=== PATIENT | male | born 1945 | race Caucasian/White ===

== ENCOUNTER 2018-07-07 07:22 | Emergency (ER) | payer MEDICARE, SELFPAY ==
[2018-07-07] VITALS (21 sets, daily range): BP systolic 119–134; BP diastolic 57–113; PULSE 75–88; RESP 18–20; TEMP 36.9–37.1; O2SAT 93–96
--- NOTE | 2018-07-07 07:31 | DI.US_ITS ---
SYMPTOMS/DIAGNOSIS: LT TESTICLE PAIN, SWELLING TESTICULAR ULTRASOUND: Routine examination was performed. The right testicle measures 4.2 x 3 x 3.9 cm. It is homogeneous with normal blood flow. No evidence of testicular torsion or intratesticular mass is seen. Note is made of a 4.1 x 1.7 x 6.0 cm right hydrocele. The right epididymis is unremarkable. The testicle measures 3.7 x 3.5 x 3.5 cm. There is increased blood flow to the left testicle. No evidence of torsion is seen. No intratesticular mass is present. The left epididymis appears hyperemic. There is a 7 x 3.5 x 5.2 cm multiloculated fluid collection on the left. This may represent a complex hydrocele or hematocele. IMPRESSION: 1. Left epididymal orchitis. 2. Complex left hydrocele. This may reflect infection or hematocele. 3. Right hydrocele. 4. No evidence of testicular mass or torsion.
--- NOTE | 2018-07-07 07:32 | W.ED.GENAD ---
Discharge Plan Disposition Patient Disposition: HOME Condition: Improving Discharge Details Chief Complaint: Urinary Clinical Impression: Left testicular pain, Hydrocele, left, Acute orchitis, Epididymitis Primary Care Provider: Elías Robb ED Provider: Miguel Angel Brown Home Meds and New Rx's Prescriptions: No Action omeprazole 20 mg Capsule,Delayed Release(Dr/Ec) 20 mg PO DAILY RF: 0 finasteride 5 mg Tablet 5 mg PO DAILY RF: 0 rdjgjwcm-nfkfmxe-iiuu-lutein Tablet 1 mcg PO DAILY RF: 0 Medical Decision Making <Jayden Bermudez MD - Last Filed: 07/07/18 07:35> 72 yo male comes in with left testicle pain and swelling that started about 3 days ago and has slowly been worsening, denies having this happen in the past and denies any recent trauma. Denies any abdominal pain or vomit. On exam his left scrotum is swollen compared to the right, no crepitus, does have tenderness of the left testicle. His cremasteric reflex does appera intact. Will see if an u/s tech is able to come in for an u/s to eval for torsion vs hernia vs orchitis. Differential Diagnosis hernia, torsion, epididymitis, orchitis <Miguel Angel Brown DO - Last Filed: 07/07/18 13:39> The case was signed out to me by my colleague Dr. Jayden Bermudez. At that time we are pending imaging results. Urinalysis returned and demonstrated notable pyuria with positive leuk esterase and nitrites. Notable WBC count in the urine. Ultrasound results have returned and per virtual radiologist there is evidence of a notable left-sided hydrocele that is multiloculated and complex at 7 x 5 x 3 cm. Hematocele is certainly also on the differential. There is hyperemia of the left testicle as well demonstrating notable orchitis. Enlarged left epididymis also concerning for epididymitis. No evidence of testicular torsion. Exam demonstrates mild erythema on the left scrotum, but no induration, no crepitus, no evidence of subcutaneous crepitus, or extending redness or cellulitis. No clinical evidence at this time of necrotizing fasciitis or foreign years gangrene. Pain is completely localized to the testicle, and nowhere else. Symptoms are inconsistent with other secondary superficial cellulitis at this time. Because of these findings I did order labs, laboratory work-up demonstrates a notably elevated WBC at 22, left shift, elevated ESR at 43 and elevated CRP at 22. Glucose is normal. Signs and symptoms are certainly concerning for orchitis with concern for epididymitis and pyuria. We have ordered blood cultures and given him Levaquin. We do not have urology certified personal chef. The patient is requesting transfer to the [facility] over [facility]. We have contacted the NH and spoke with Dr. Isaac Lane, he then subsequently reviewed the case with their urology team, as well as her surgery team, and urology and surgery have requested his transfer there to their facility for further management. They do feel that the transfer is appropriate at this time. The NH hospitalist did remark that transport would not be covered under the patient's [employer] insurance. I did relay this with the patient, including the risks and benefits versus transport via private vehicle versus by EMS. I also gave them my recommendations at this time. Understanding the risks and benefits, as well as the potential financial encouragement, family has elected to go with EMS transport at this time. I do think that this is certainly be safer option due to his notably elevated white count, notably tender testicles, and concern for worsening of his symptomatology if he is out of medical care. I have extensively reviewed the treatment plan with the patient. I have addressed all patient concerns at this time. I have also discussed the plan with the admitting physician and they agree with the current assessment and plan and have agreed to assume responsibility for the patient. All parties demonstrate verbal understanding and agreement with our assessment and plan at this time. At time of transfer the patient was reassessed and continued to demonstrate current medical stability. No signs of acute respiratory distress requiring intubation, hemodynamic instability requiring pressor support, or rapidly declining mental status. The patient is stable for transport. FINDINGS: Right Testicle: 4.2 x 3.0 x 3.9 cm right testicle. Left Testicle: Hyperemia of the left testicle consistent with left orchitis. 3.7 x 3.5 x 3.5 cm left testicle. Epididymides: Enlarged hyperemic left epididymis consistent with left epididymitis. 1.7 x 1.0 x 1.4 cm left epididymis. 1.2 x 0.6 cm right epididymis. Scrotum: 4.1 x 1.7 x 6.0 cm right hydrocele. Multiloculated complex 7.0 x 3.5 x 5.2 cm left hematocele versus multiloculated hydrocele. Other findings: No testicular torsion or intrinsic testicular mass. IMPRESSION: 1. 4.1 x 1.7 x 6.0 cm right hydrocele. 2. Multiloculated complex 7.0 x 3.5 x 5.2 cm left hematocele versus multiloculated hydrocele. 3. Hyperemia of the left testicle consistent with left orchitis. 4. Enlarged hyperemic left epididymis consistent with left epididymitis. 5. No testicular torsion or intrinsic testicular mass. Dictated and Authenticated by: Jayden Erickson MD. Ordering:ELIANE Carpenter MD HPI <Jayden Bermudez MD - Last Filed: 07/07/18 07:35> General Mode of arrival: ambulatory. Date/Time Provider Initiated Documentation: 07/07/18 07:26. Limitations to Documentation: no limitations. Information obtained by: patient. History of Present Illness 72 year old M presents to the emergency department with the chief complaint of left scrotum swelling and pain, described as moderate, Quality is described as stabbing and aching, and is localized to the genitals. Patient reports no radiation. Patient started experiencing this day(s) (3) and it has been constant. No relieving factors improve symptom(s), No exacerbating factors reported . Patient notes no other symptoms.. Patient did receive the following treatments prior to arrival, none Related Data Home Medications Medication Instructions Recorded Confirmed finasteride 5 mg PO DAILY 07/07/18 07/07/18 sacxtbok-rpsxxvx-gdsh-lutein 1 mcg PO DAILY 07/07/18 07/07/18 omeprazole 20 mg PO DAILY 07/07/18 07/07/18 Allergies Allergy/AdvReac Type Severity Reaction Status Date / Time No Known Allergies Allergy Unverified 07/07/18 07:34 Review of Systems <Jayden Bermudez MD - Last Filed: 07/07/18 07:35> Review of Systems All systems reviewed & are unremarkable except as noted in HPI and below Constitutional Denies chills, Denies fever(s) and Denies weakness Cardiovascular Denies chest pain and Denies dyspnea Respiratory Denies cough and Denies dyspnea Gastrointestinal Denies abdominal pain, Denies nausea and Denies vomiting Musculoskeletal Denies joint swelling Neurologic Denies weakness PFS <Jayden Bermudez MD - Last Filed: 07/07/18 07:35> Medical History Benign prostate hyperplasia (Chronic) COPD (chronic obstructive pulmonary disease) (Chronic) Social History Smoking/Tobacco Use Status: Former Tobacco Use Alcohol Intake: never Substance use type: does not use Do you feel safe at home: Yes Do you feel safe in your relationship?: Yes Exam <Jayden Bermudez MD - Last Filed: 07/07/18 07:35> Const General: no acute distress Orientation: alert HENMT Head: normal to inspection Ears: external ears normal General nose exam: external nose normal Mouth: moist mucous membranes Eyes General: appearance normal, both eyes and all related structures Neck Neck: normal visual inspection Resp Effort & Inspection: normal respiratory effort and able to speak in complete sentences Cardio Rate: regular rate Penis: normal penis Skin General skin exam: no rashes or lesions noted Neuro General: alert and oriented x3 Extrem General: normal to inspection Psych Mental Status: mental status grossly normal Sign Out <Jayden Bermudez MD - Last Filed: 07/07/18 07:35> Sign Out Data: Sign Out Comment: f/u on u.s results Last updated by Jayden Bermudez MD at 07/07/18 07:40
--- NOTE | 2018-07-07 07:36 | ED.GENADUL_ITS ---
Discharge Plan Disposition Patient Disposition: HOME Condition: Improving Discharge Details Chief Complaint: Urinary Clinical Impression: Left testicular pain, Hydrocele, left, Acute orchitis, Epididymitis Primary Care Provider: Elías Robb ED Provider: Miguel Angel Brown Home Meds and New Rx's Prescriptions: No Action omeprazole 20 mg Capsule,Delayed Release(Dr/Ec) 20 mg PO DAILY RF: 0 finasteride 5 mg Tablet 5 mg PO DAILY RF: 0 ifedaqmu-hwulxoh-zgwi-lutein Tablet 1 mcg PO DAILY RF: 0 Medical Decision Making <Jayden Bermudez MD - Last Filed: 07/07/18 07:35> 72 yo male comes in with left testicle pain and swelling that started about 3 days ago and has slowly been worsening, denies having this happen in the past and denies any recent trauma. Denies any abdominal pain or vomit. On exam his left scrotum is swollen compared to the right, no crepitus, does have tenderness of the left testicle. His cremasteric reflex does appera intact. Will see if an u/s tech is able to come in for an u/s to eval for torsion vs hernia vs orchitis. Differential Diagnosis hernia, torsion, epididymitis, orchitis <Miguel Angel Brown DO - Last Filed: 07/07/18 13:39> The case was signed out to me by my colleague Dr. Jayden Bermudez. At that time we are pending imaging results. Urinalysis returned and demonstrated notable pyuria with positive leuk esterase and nitrites. Notable WBC count in the u rine. Ultrasound results have returned and per virtual radiologist there is evidence of a notable left-sided hydrocele that is multiloculated and complex at 7 x 5 x 3 cm. Hematocele is certainly also on the differential. There is hyperemia of the left testicle as well demonstrating notable orchitis. Enlarged left epididymis also concerning for epididymitis. No evidence of testicular torsion. Exam demonstrates mild erythema on the left scrotum, but no induration, no crepitus, no evidence of subcutaneous crepitus, or extending redness or cellulitis. No clinical evidence at this time of necrotizing fasciitis or foreign years gangrene. Pain is completely localized to the testicle, and nowhere else. Symptoms are inconsistent with other secondary superficial cellulitis at this time. Because of these findings I did order labs, laboratory work-up demonstrates a notably elevated WBC at 22, left shift, elevated ESR at 43 and elevated CRP at 22. Glucose is normal. Signs and symptoms are certainly concerning for orchitis with concern for epididymitis and pyuria. We have ordered blood cultures and given him Levaquin. We do not have urology occupational therapist aide. The patient is requesting transfer to the [facility]. We have contacted the [facility] and spoke with Dr. Isaac Lane, he then subsequently reviewed the case with their urology team, as well as her surgery team, and urology and surgery have requested his transfer there to their facility for further management. They do feel that the transfer is appropriate at this time. The [facility] hospitalist did remark that transport would not be covered under the patient's [employer] insurance. I did relay this with the patient, including the risks and benefits versus transport via private vehicle versus by EMS. I also gave them my recommendations at this time. Understanding the risks and benefits, as well as the potential financial encouragement, family has elected to go with EMS transport at this time. I do think that this is certainly be safer option due to his notably elevated white count, notably tender testicles, and concern for worsening of his symptomatology if he is out of medical care. I have extensively reviewed the treatment plan with the patient. I have addressed all patient concerns at this time. I have also discussed the plan with the admitting physician and they agree with the current assessment and plan and have agreed to assume responsibility for the patient. All parties demonstrate verbal understanding and agreement with our assessment and plan at this time. At time of transfer the patient was reassessed and continued to demonstrate current medical stability. No signs of acute respiratory distress requiring intubation, hemodynamic instability requiring pressor support, or rapidly declining mental status. The patient is stable for transport. FINDINGS: Right Testicle: 4.2 x 3.0 x 3.9 cm right testicle. Left Testicle: Hyperemia of the left testicle consistent with left orchitis. 3.7 x 3.5 x 3.5 cm left testicle. Epididymides: Enlarged hyperemic left epididymis consistent with left epididymitis. 1.7 x 1.0 x 1.4 cm left epididymis. 1.2 x 0.6 cm right epididymis. Scrotum: 4.1 x 1.7 x 6.0 cm right hydrocele. Multiloculated complex 7.0 x 3.5 x 5.2 cm left hematocele versus multiloculated hydrocele. Other findings: No testicular torsion or intrinsic testicular mass. IMPRESSION: 1. 4.1 x 1.7 x 6.0 cm right hydrocele. 2. Multiloculated complex 7.0 x 3.5 x 5.2 cm left hematocele versus multiloculated hydrocele. 3. Hyperemia of the left testicle consistent with left orchitis. 4. Enlarged hyperemic left epididymis consistent with left epididymitis. 5. No testicular torsion or intrinsic testicular mass. Dictated and Authenticated by: Jayden Erickson MD. Ordering:ELIANE Carpenter MD HPI <Jayden Bermudez MD - Last Filed: 07/07/18 07:35> General Mode of arrival: ambulatory . Date/Time Provider Initiated Documentation: 07/07/18 07:26 . Limitations to Documentation: no limitations . Information obtained by: patient . History of Present Illness 72 year old M presents to the emergency department with the chief complaint of left scrotum swelling and pain, described as moderate, Quality is described as stabbing and aching, and is localized to the genitals. Patient reports no radiation. Patient started experiencing this day(s) (3) and it has been constant. No relieving factors improve symptom(s), No exacerbating factors reported . Patient notes no other symptoms.. Patient did receive the following treatmen ts prior to arrival, none Related Data Home Medications Medication Instructions Recorded Confirmed finasteride 5 mg PO DAILY 07/07/18 07/07/18 zvwqhuun-hoodnyl-gpcl-lutein 1 mcg PO DAILY 07/07/18 07/07/18 omeprazole 20 mg PO DAILY 07/07/18 07/07/18 Allergies Allergy/AdvReac Type Severity Reaction Status Date / Time No Known Allergies Allergy Unverified 07/07/18 07:34 Review of Systems <Jayden Bermudez MD - Last Filed: 07/07/18 07:35> Review of Systems All systems reviewed & are unremarkable except as noted in HPI and below Constitutional Denies chills, Denies fever(s) and Denies weakness Cardiovascular Denies chest pain and Denies dyspnea Respiratory Denies cough and Denies dyspnea Gastrointestinal Denies abdominal pain, Denies nausea and Denies vomiting Musculoskeletal Denies joint swelling Neurologic Denies weakness PFS <Jayden Bermudez MD - Last Filed: 07/07/18 07:35> Medical History Benign prostate hyperplasia (Chronic) COPD (chronic obstructive pulmonary disease) (Chronic) Social History Smoking/Tobacco Use Status: Former Tobacco Use Alcohol Intake: never Substance use type: does not use Do you feel safe at home: Yes Do you feel safe in your relationship?: Yes Exam <Jayden Bermudez MD - Last Filed: 07/07/18 07:35> Const General: no acute distress Orientation: alert HENMT Head: normal to inspection Ears: external ears normal General nose exam: external nose normal Mouth: moist mucous membranes Eyes General: appearance normal, both eyes and all related structures Neck Neck: normal visual inspection Resp Effort & Inspection: normal respiratory effort and able to speak in complete sentences Cardio Rate: regular rate Penis: normal penis Skin General skin exam: no rashes or lesions noted Neuro General: alert and oriented x3 Extrem General: normal to inspection Psych Mental Status: mental status grossly normal Sign Out <Jayden Bermudez MD - Last Filed: 07/07/18 07:35> Sign Out Data: Sign Out Comment: f/u on u.s results Last updated by Jayden Bermudez MD at 07/07/18 07:40
[2018-07-07 08:46] LABS: Bilirubin Small (Negative); Blood Large (Negative); Clarity Clear; Glucose Negative (Negative); Ketones Trace mg/dL (Negative); Leukocyte Esterase Small (Negative); Nitrite Positive (Negative); Specific Gravity 1.025 (1.005-1.025); pH 5.5 (5-8)
[2018-07-07 08:52] LABS: WBC >50 HPF (0-5)
[2018-07-07 08:53] LABS: C & S Indicated? Yes
--- NOTE | 2018-07-07 10:13 | DI.VRAD_ITS ---
EXAM: US Scrotum EXAM DATE/TIME: 07/07/2018 9:40 AM CLINICAL HISTORY: 72 years old, male; Signs and symptoms; Other: Left testicular pain and swelling x 3 days S/P lifting heavy rocks TECHNIQUE: Imaging protocol: Real-time ultrasound of the scrotum and contents with color Doppler and image documentation. COMPARISON: No relevant prior studies available. FINDINGS: Right Testicle: 4.2 x 3.0 x 3.9 cm right testicle. Left Testicle: Hyperemia of the left testicle consistent with left orchitis. 3.7 x 3.5 x 3.5 cm left testicle. Epididymides: Enlarged hyperemic left epididymis consistent with left epididymitis. 1.7 x 1.0 x 1.4 cm left epididymis. 1.2 x 0.6 cm right epididymis. Scrotum: 4.1 x 1.7 x 6.0 cm right hydrocele. Multiloculated complex 7.0 x 3.5 x 5.2 cm left hematocele versus multiloculated hydrocele. Other findings: No testicular torsion or intrinsic testicular mass. IMPRESSION: 1. 4.1 x 1.7 x 6.0 cm right hydrocele. 2. Multiloculated complex 7.0 x 3.5 x 5.2 cm left hematocele versus multiloculated hydrocele. 3. Hyperemia of the left testicle consistent with left orchitis. 4. Enlarged hyperemic left epididymis consistent with left epididymitis. 5. No testicular torsion or intrinsic testicular mass. Dictated and Authenticated by: Jayden Erickson MD. Ordering:ELIANE Carpenter MD
[2018-07-07] MEDS: levoFLOXacin 500 MG/100 ML BAG 100 MG IVPB (10:15)
[2018-07-07 10:16] LABS: Abs Immature Grans 0.07 k/cumm (0.0-0.09); Absolute Monocyte Count 2.63 k/cumm (0.11-0.7); Basophils % 0.2; Eosinophils % 0.3; HCT 43.1 % (40.0-50.0); HGB 14.3 g/dL (13.5-17.5); Immature Grans % 0.3; Lymphocytes % 7.7; Mean Corp. HGB Concentration 33.2 g/dL (32.0-36.0); Mean Corpuscular Hemoglobin 28.8 pg (27.0-33.0); Mean Corpuscular Volume 86.9 fL (80-95); Mean Platelet Volume 9.1 fL (8.0-11.0); Monocytes % 11.9; Neutrophils % 79.6; Platelet Count 333 x1000/uL (130-400); RBC 4.96 m/cumm (4.50-6.00); White Blood Cell Count 22.07 k/cumm (4.4-10.8)
[2018-07-07 10:26] LABS: Absolute Basophil Count 0.04 k/cumm (0.0-0.2); Absolute Eosinophil Count 0.07 k/cumm (0.0-0.7); Absolute Neutrophil Count 17.57 k/cumm (1.2-6.7)
[2018-07-07 10:28] LABS: ALT 39 U/L (12-78); AST 21 U/L (15-37); Albumin 3.3 g/dL (3.4-5.0); Alkaline Phosphatase 94 U/L (46-116); Anion Gap 10.2 mmol/L (3-11); BUN 16 mg/dL (7-18); Bilirubin, Total 0.9 mg/dL (0.2-1.0); C-Reactive Protein 22.33 mg/dL (0.0-0.3); CO2 25.8 mmol/L (21.0-32.0); CREATININE 1.38 mg/dL (0.70-1.30); Calcium 9.2 mg/dL (8.5-10.1); Chloride 99 mmol/L (98-107); Estimated GFR 50.51 (mL/min/1.73m2); Glucose 104 mg/dL (70-100); Potassium 3.8 mmol/L (3.5-5.1); Sodium 135 mmol/L (136-145)
[2018-07-07 10:36] LABS: Diff Comment Diff Reviewed
[2018-07-07 10:37] LABS: RBC Morphology Normal
[2018-07-07 11:08] LABS: ESR 43 MM/HR (1-20)
[2018-07-07] MEDS: MORPHine 10 MG/ML VIAL 4 MG IVP (14:37)
[2018-07-09 13:46] LABS: Chlamydia Result Negative; GC Result Negative
--- NOTE | 2018-07-10 17:02 | NUR.NOTE ---
Nursing Note: Faxed to [place] the urine culture result for follow up. [facility] accepting the fax. Wilma Dodge.
== END 2018-07-07 14:48 | disposition short-term general hospital (02) ==
PROVIDERS: Emergency Medicine; Emergency Provider Student in an Organized Health Care Education/Training Program; PCP Physician Assistant Medical
DX: N50.812 Left testicular pain (principal); N50.89 Other specified disorders of the male genital organs; N43.3 Hydrocele, unspecified; N45.3 Epididymo-orchitis; B95.61 Methicillin susceptible Staphylococcus aureus infection as the cause of diseases classified elsewhere; R79.82 Elevated C-reactive protein (CRP); R70.0 Elevated erythrocyte sedimentation rate; J44.9 Chronic obstructive pulmonary disease, unspecified; Z87.891 Personal history of nicotine dependence
CPT/HCPCS: 36410; 36415; 80053; 85652; 87040; 87077; 87491; 87591; 96365; 96366; 96375; 99285; 76870; 81003; 81015; 85025; 86140; 87086; 87186; J1956; J2270

== ENCOUNTER 2018-12-25 20:27 | Emergency (ER) | payer OTHER, SELFPAY ==
[2018-12-25 20:39] VITALS: BP 157/96; PULSE 83; RESP 17; TEMP 36.5; O2SAT 96
--- NOTE | 2018-12-25 20:50 | ED.GENADUL_ITS ---
Discharge Plan Disposition Patient Disposition: HOME Condition: Fair Discharge Details Chief Complaint: RashLesion Clinical Impression: Cellulitis of face Primary Care Provider: Elías Robb ED Provider: Maeve Akers Home Meds and New Rx's Prescriptions: New doxycycline hyclate 100 mg capsule 100 mg PO BID Qty: 10 RF: 0 Continued omeprazole 20 mg Capsule,Delayed Release(Dr/Ec) 20 mg PO DAILY RF: 0 finasteride 5 mg Tablet 5 mg PO DAILY RF: 0 Zyrtec 10 mg Capsule 10 mg PO DAILY RF: 0 Discontinued uamzorxl-ubxdzin-hoyz-lutein Tablet 1 mcg PO DAILY RF: 0 Discharge Instructions Instructions: Doxycycline (By mouth), Cellulitis (ED) Additional Instructions: Encourage hydration. Tylenol and/or Ibuprofen as needed for discomfort. You have a skin infection. Please take the Doxycycline as prescribed, even if symptoms improve please take the entire course. Please follow up with primary care in 3 days for reevaluation. If the pain increases, swelling spreads, you have fevers/chills, pain in the eye, vision changes or other new/worsening symptoms please seek care urgently once again. Referrals: Elías Robb [Primary Care Provider] - Discharge Data Discharge Date/Time-TO BE ENTERED AT DEPARTURE: 12/25/18 21:25 Medical Decision Making Patient is 73-year-old male presents today with chief complaint of left-sided rash and swelling in his face. States that he has been using anti-inflammatory and ice which is been helping with his discomfort. Denies any fevers or chills. No known trauma. Pain is primarily at the area of the nasolabial fold. Denies any change in his vision. No eye discharge. No pain with extraocular movements. On exam, patient has area of erythema to the left side of his face that does extend across the nose. Patient does report that typically he has erythema to his nose reports he has been seen by [employer] barista for this. Patient is area of induration maximal at the left nasolabial fold, this was was explored with ultrasound noted no evidence of his abscess was noted. No findings intranasally, and no abnormalities intraorally to suggest dental infection. Concern for possible erysipelas. Patient was also evaluated by Dr. Amado felt this is more consistent with cellulitis more so than erysipelas. Advise beginning the patient on doxycycline. Patient was given strict return precautions. Encourage hydration. Patient started on doxycycline, received first dosing here as pharmacies are closed. All his questions and concerns were addressed and he is in agreement this plan. HPI General Mode of arrival: ambulatory . Date/Time Provider Initiated Documentation: 12/25/18 20:33 . Limitations to Documentation: no limitations . Information obtained by: patient and RN notes reviewed . History of Present Illness 73 year old M presents to the emergency department with the chief complaint of left sided facial swelling, pain and erythema, described as moderate, with intensity rated at 8. Quality is described as aching, and is localized to the face. Patient reports no radiation. Patient started experiencing this hour(s) and it has been constant. Medication improves symptom(s), No exacerbating factors reported . Patient notes rash; denies chest pain, cough, diaphoresis, fever/chills, headaches, loss of appetite, nausea/vomiting, shortness of breath and weakness. Patient did receive the following treatments prior to arrival, NSAID Related Data Home Medications Medication Instructions Recorded Confirmed finasteride 5 mg PO DAILY 07/07/18 12/25/18 omeprazole 20 mg PO DAILY 07/07/18 12/25/18 Zyrtec 10 mg PO DAILY 12/25/18 12/25/18 doxycycline hyclate 100 mg PO BID #10 cap 12/25/18 Previous Rx's Medication Instructions Recorded doxycycline hyclate 100 mg PO BID #10 cap 12/25/18 Allergies Allergy/AdvReac Type Severity Reaction Status Date / Time cimetidine [From Tagamet] Allergy Severe Other (See Unverified 12/25/18 20:44 Comment) General Stated Complaint: RashLesion RAYMON: 3 Review of Systems Constitutional Constitutional: Reports as per HPI, Denies chills, Denies fever(s) and Denies headache(s) Eyes Eyes: Reports as per HPI, Denies eye discharge and Denies irritation ENT Ears, Nose, Mouth, and Throat: Reports as per HPI, Denies vertigo, Denies dizziness, Denies ear discharge, Denies otalgia, Reports facial pain, Denies headache(s), Denies hoarseness, Denies lip swelling, Denies mouth lesions, Denies mouth pain, Denies nasal congestion, Denies nasal discharge, Reports nose pain (left nasolabial fold pain), Denies post nasal drip, Denies sinus pressure and Denies sore throat Cardiovascular Cardiovascular: Reports as per HPI, Denies chest pain and Denies dyspnea Respiratory Respiratory: Reports as per HPI, Denies cough, Denies hemoptysis, Denies dyspnea, Denies stridor and Denies wheezing Gastrointestinal Gastrointestinal: Reports as per HPI, Denies abdominal pain, Denies change in bowel habits, Denies nausea and Denies vomiting Integumentary/Breasts Skin/Breast: Reports as per HPI and Denies rash Neurologic Neurologic: Reports as per HPI, Denies vertigo, Denies dizziness and Denies headache(s) Allergic/Immunologic Allergic/Immunologic: Denies lip swelling and Denies wheezing [facility] Medical History Benign prostate hyperplasia (Chronic) COPD (chronic obstructive pulmonary disease) (Chronic) Social History Smoking/Tobacco Use Status: Former Tobacco Use Alcohol Intake: never Drug use: Never Substance use type: does not use Do you feel safe at home: Yes Do you feel safe in your relationship?: Yes Exam Const General: cooperative, healthy appearing, comfortable, no acute distress, well developed and well groomed Nutritional Appearance: average body habitus and well nourished Orientation: alert and awake HENPR Head: normal to inspection, normocephalic and atraumatic Ears: hearing grossly normal bilaterally, external ears normal and TM's normal bilaterally General nose exam: external nose normal and nares normal Face and sinus: face asymmetric (please see drawing below) Face images: 1. area of induration. No fluctuance. No intranasal involvement. No eye involvement 2. area of erythema Mouth: oral mucosae normal, lip normal, tongue normal, oropharynx normal and moist mucous membranes Teeth and gingiva: dentition normal Throat: posterior oropharynx normal, tonsils normal and uvula midline Eyes General: appearance normal, both eyes and all related structures Visual Tate: normal visual tate by confrontation Alignment and Position: alignment normal Periorbital: periorbital findings normal Eyelids: eyelids normal Conjunctivae: conjunctivae normal Sclera: sclerae normal Cornea: corneas normal Pupils: PERRL and normal by confrontation EOM: EOM intact bilaterally Neck Neck: normal visual inspection, full ROM, no lymphadenopathy and no meningeal signs Resp Effort & Inspection: normal respiratory effort, able to speak in complete sentences and no respiratory distress Auscultation: clear to auscultation bilaterally, no rales, no rhonchi and no wheezes Cardio Rate: regular rate Rhythm: regular rhythm Heart Sounds: S1 normal and S2 normal Skin General skin exam: erythema (as above) Neuro General: alert and awake Cognition: normal cognition Speech: speech normal Gait: normal gait Psych Appearance: grossly normal and well kempt Mental Status: mental status grossly normal Speech and Movement: speech and movement normal Course Vital Signs Vital signs: Vital Signs Temperature 36.5 C 12/25/18 20:39 Pulse 83 12/25/18 20:39 Respiratory Rate 17 12/25/18 20:39 Blood Pressure 157/96 H 12/25/18 20:39 Pulse Oximetry 96 12/25/18 20:39 Temperature 36.5 C 12/25/18 20:39 Temperature Source Skin 12/25/18 20:39 Pulse 83 12/25/18 20:39 Respiratory Rate 17 12/25/18 20:39 Blood Pressure 157/96 H 12/25/18 20:39 Blood Pressure Position Sitting 12/25/18 20:39 Pulse Oximetry 96 12/25/18 20:39 Oxygen Delivery Method Room Air 12/25/18 20:39 Oxygen Flow Rate 0 12/25/18 20:39 Pain Level 8 12/25/18 20:39
[2018-12-25] MEDS: Doxycycline Hyclate 100 MG CAP PO ×2 (21:10→21:20)
[2018-12-25 21:22] VITALS: BP 152/74; PULSE 84; RESP 18; TEMP 36.5; O2SAT 96
== END 2018-12-25 21:25 | disposition home or self-care (01) ==
PROVIDERS: Emergency Provider Physician Assistant; PCP Physician Assistant Medical
DX: L03.211 Cellulitis of face (principal); J44.9 Chronic obstructive pulmonary disease, unspecified; Z87.891 Personal history of nicotine dependence
CPT/HCPCS: 99283

== ENCOUNTER 2019-04-17 10:48 | Emergency (ER) | payer OTHER, SELFPAY ==
[2019-04-17 10:54] VITALS: BP 154/80; PULSE 79; RESP 14; TEMP 36.3; O2SAT 97
[2019-04-17 11:13] VITALS: RESP 18
--- NOTE | 2019-04-17 11:16 | NUR.NOTE ---
IOP in OS was 13 and OD 22 with tonopen.
--- NOTE | 2019-04-17 11:59 | ED.GENADUL_ITS ---
Discharge Plan Disposition Patient Disposition: HOME Condition: Good Discharge Details Chief Complaint: GenMedical Clinical Impression: Diplopia Primary Care Provider: Elías Robb ED Provider: Miguel Angel Brown Home Meds and New Rx's Prescriptions: No Action omeprazole 20 mg Capsule,Delayed Release(Dr/Ec) 20 mg PO DAILY RF: 0 finasteride 5 mg Tablet 5 mg PO DAILY RF: 0 budesonide-formoterol [Symbicort] 160-4.5 mcg/actuation Hfa Aerosol Inhaler 160 INHALATION RF: 0 Discharge Instructions Instructions: Diplopia (ED) Additional Instructions: At this time we suspect that your double vision is likely secondary to nerve affecting the muscles that move your eye. Please take a baby aspirin every day. Please follow-up closely with your taproom attendant at the [facility] for your scheduled appointment. We will place you on the referral sheet for neurology with Dr. Olmedo. They will contact you for your appointment time. If you notice any worsening of your symptoms, or any new symptoms such as vomiting, diarrhea, fever, chills, shortness of breath, chest pain, numbness, weakness, or fainting , please return immediately to the emergency department for reevaluation. Please follow up with your primary care provider as soon as possible for reassessment and reevaluation. As always, it was a pleasure participating in your medical care today. Referrals: Elías Robb [Primary Care Provider] - Anna Olmedo MD [ [facility] STAFF PHYSICIAN] - Medical Decision Making 73-year-old male with a past medical history of BPH, COPD, presents today for evaluation of double vision. Patient states that yesterday when he woke up he developed sudden onset double vision. It is been unchanged since then, utilizing one eye he has no double vision, but both eyes will give him consistent double vision that he states is worsening. He denies pain in his eyes, headache, neck pain, numbness, tingling, weakness, chest pain or new shortness of breath. He denies fever or chills. He denies any recent falls or trauma. He has never had a symptoms like this before. He denies any current tobacco abuse. He denies any history of stroke. No other complaints at this time. Symptoms are only improved by closing one eye. Physical exam demonstrates no focal neurologic deficits that I can appreciate, vision is intact, no tate of vision seem to be reduced. He does demonstrate both a horizontal and a slight vertical correction on the test of skew for his left eye. However no significant nystagmus. Differential does include infarct, tumor or mass, or other intracranial abnormality. Peripheral etiology is on the differential but feels less likely. With no evidence of SAURAV or exotropia, there does not appear to be a very clear focal deficit on the external exam otherwise. He has no temporal tenderness, no headache no jaw pain neck pain or chest pain. No history of rheumatic disease. Symptoms inconsistent with temporal arteritis, and with no vision changes, no pain or tenderness to the eye, symptoms appear and are consistent with retinal artery or venous occlusion. No signs of glaucoma as pressures are inconsistent with acute angle-closure glaucoma. CT scan is currently unavailable. MRI is available. We will get an MRI for further evaluation which I do feels indicated in the current scenario. 2:30 PM MRI results have returned, no evidence of acute infarct or acute intracranial process. The patient still maintains his horizontal double vision. No vertical double vision. Of note I did reassess the patient again, and moving extremely slowly I can hand picker a very subtle unidirectional leftward horizontal nystagmus. Also of note the patient's double vision seems to resolve when brought to the far plane of the left side of his vision, with his double vision then transitioning back prior to midline and continuing all the way through rightward looking. Did contact Dr. Olmedo and discussed the case with her. Of note the patient has no family history of rheumatic arthritis, history of autoimmune conditions in himself or his family, he continues to demonstrate no headache, no temporal tenderness or significant temporal artery swelling. Dr. Olmedo does recommend though getting an ESR for further outpatient management. 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 We will get the ESR, have the patient follow-up with his already es tablished appointment later this month with his taproom attendant/home security alarm installer at the [facility], and will place him on follow-up list for neurology. 3:15 PM ESR is normal. Patient will be discharged home with close follow-up, daily aspirin. I have extensively reviewed the treatment plan and discharge instructions with the patient. I have addressed all patient concerns at this time. The patient was made aware of what symptoms to monitor for that would warrant a return to the emergency department. Discussed the plan with the patient, they demonstrate verbal understanding and agreement with our assessment and plan at this time. EKG 13: 12 Rate 81, intervals normal, sinus rhythm, no significant ST elevations or depression, no evidence of STEMI. No evidence of significant dysrhythmia. Mild artifact is noted. FINDINGS: VENTRICLES AND EXTRA AXIAL SPACES: The ventricles and sulci are consistent with the patient's age. MIDLINE SHIFT: None. CEREBRAL PARENCHYMA: No focus of restricted diffusion to suggest acute infarct. No space-occupying lesion identified. HEMORRHAGE: None. BRAINSTEM/CEREBELLUM: Normal. CALVARIUM: Normal. VISUALIZED PARANASAL SINUSES/MASTOIDS:There is a small mucous retention cyst or polyp in the right maxillary sinus. Visualized paranasal sinuses are otherwise clear. [place]: Normal flow void. OTHER FINDINGS: None. IMPRESSION: No evidence of an acute infarct. No acute intracranial process. Findings were discussed with the emergency department on the date of the examination. HPI General Date/Time Provider Initiated Documentation: 04/17/19 10:59 . HPI Narrative: 73-year-old male with a past medical history of BPH, COPD, presents today for evaluation of double vision. Patient states that yesterday when he woke up he developed sudden onset double vision. It is been unchanged since then, utilizing one eye he has no double vision, but both eyes will give him consistent double vision that he states is worsening. He denies pain in his eyes, headache, neck pain, numbness, tingling, weakness, chest pain or new shortness of breath. He denies fever or chills. He denies any recent falls or trauma. He has never had a symptoms like this before. He denies any current tobacco abuse. He denies any history of stroke. No other complaints at this time. Symptoms are only improved by closing one eye. Related Data Home Medications Medication Instructions Recorded Confirmed finasteride 5 mg PO DAILY 07/07/18 04/17/19 omeprazole 20 mg PO DAILY 07/07/18 04/17/19 budesonide-formoterol [Symbicort] 160 INHALATION 04/17/19 Allergies Allergy/AdvReac Type Severity Reaction Status Date / Time cimetidine [From Tagamet] Allergy Severe Other (See Unverified 04/17/19 10:57 Comment) General Stated Complaint: GenMedical RAYMON: 3 Review of Systems All systems reviewed & are unremarkable except as noted in HPI and below [facility] Social History Smoking/Tobacco Use Status: Former Tobacco Use Alcohol Intake: never Drug use: Never Substance use type: does not use Do you feel safe at home: Yes Do you feel safe in your relationship?: Yes Exam Narrative Exam Narrative: 1.Const: Well-nourished, Well-developed, appearing stated age 2.Eyes: PERRL, no conjunctival injection, and symmetrical lids. Patient's right eye Buzz-Pen pressure is 22, left eye is 13 to 20. No pain on palpation or pressure of the right eye. 3.ENT: Atraumatic external nose and ears. Moist MM. Neck: Symmetric, trachea midline, No thyromegaly. 4.CVS: +S1/S2, No murmurs or gallops. Peripheral pulses 2+ and equal in all extremities. Brisk capillary refill in all extremities. 5.RESP: Unlabored respiratory effort. Clear to auscultation bilaterally. No wheezes rales or rhonchi 6.GI: Soft, Nontender/Nondistended, No hepatosplenomegaly. No guarding or rebound. 7.MSK: Normocephalic/Atraumatic, Extremities w/o deformity or ttp No cyanosis or clubbing, Normal movement of all extremities 8.Skin: Warm, Dry. No rashes or lesions. 9.Neuro: catalyst supervisor II-XII grossly intact. Sensation grossly intact, no focal neurologic deficits. All 6 cardinal planes of vision are fully intact. No evidence of rotatory or vertical nystagmus. The patient demonstrated a normal wofzud-bmif-uirlfl, good dexterity. There was no evidence of dysdiadochokinesia. Patient was able to ambulate without difficulty. There was no wide-based gait. Romberg testing was normal. Aliw-sd-rpkg testing was normal. Sensation was i ntact bilaterally as well as muscle strength bilaterally for all extremities. Patient was able to verbalize butter cup with no slurring, or miss pronunciation. Cerebellar function testing is normal.No vertical nystagmus. The head impulse test is negative for any significant central abnormality. Test of skew demonstrates notable left sided horizontal and slight vertical correction. Patient does seem to have slight difficulty tracking with the left eye but does follow well otherwise. All tate of vision are notably intact. Pupils reactive and not sluggish. 10.Psych: (AAO) x3. Appropriate mood and affect Course Vital Signs Vital signs: Vital Signs Temperature 36.3 C L 04/17/19 10:54 Pulse 79 04/17/19 10:54 Respiratory Rate 14 04/17/19 10:54 Blood Pressure 154/80 H 04/17/19 10:54 Pulse Oximetry 97 04/17/19 10:54 Temperature 36.3 C L 04/17/19 10:54 Temperature Source Tympanic 04/17/19 10:54 Pulse 79 04/17/19 10:54 Respiratory Rate 18 04/17/19 11:13 Respiratory Effort Non-Labored 04/17/19 11:13 Respiratory Depth Normal 04/17/19 11:13 Respiratory Pattern Normal 04/17/19 11:13 Blood Pressure 154/80 H 04/17/19 10:54 Blood Pressure Position Sitting 04/17/19 10:54 Pulse Oximetry 97 04/17/19 10:54 Oxygen Delivery Method Room Air 04/17/19 10:54 Oxygen Flow Rate 0 04/17/19 10:54
--- NOTE | 2019-04-17 12:33 | DI.MRI_ITS ---
EXAM: MR BRAIN WO CLINICAL HISTORY: Sudden onset double vision TECHNIQUE: Multiplanar multisequence MRI of the brain was performed. COMPARISON: No exams were available for comparison FINDINGS: VENTRICLES AND EXTRA AXIAL SPACES: The ventricles and sulci are consistent with the patient's age. MIDLINE SHIFT: None. CEREBRAL PARENCHYMA: No focus of restricted diffusion to suggest acute infarct. No space-occupying le ely identified. HEMORRHAGE: None. BRAINSTEM/CEREBELLUM: Normal. CALVARIUM: Normal. VISUALIZED PARANASAL SINUSES/MASTOIDS:There is a small mucous retention cyst or polyp in the right ma xillary sinus. Visualized paranasal sinuses are otherwise clear. [place]: Normal flow void. OTHER FINDINGS: None. IMPRESSION: No evidence of an acute infarct. No acute intracranial process. Findings were discussed with the emergency department on the date of the examination. DATA REPOSITORY:
[2019-04-17 12:59] VITALS: BP 136/83; PULSE 74; RESP 16; TEMP 36.7; O2SAT 94
[2019-04-17 15:07] LABS: ESR 18 mm/hr (1-20)
--- NOTE | 2019-04-18 08:22 | NUR.NOTE ---
Referral faxed to Neurology, Dr. Patterson.Nursing Note:
== END 2019-04-17 15:19 | disposition home or self-care (01) ==
PROVIDERS: Emergency Provider Student in an Organized Health Care Education/Training Program; PCP Physician Assistant Medical
DX: H53.2 Diplopia (principal); J44.9 Chronic obstructive pulmonary disease, unspecified; Z87.891 Personal history of nicotine dependence
CPT/HCPCS: 36415; 85652; 93005; 99284; 70551; 93010

== ENCOUNTER 2021-05-14 08:59 | Emergency (ER) | payer OTHER, SELFPAY ==
[2021-05-14 09:05] VITALS: BP 120/73; PULSE 95; RESP 18; TEMP 36.6; O2SAT 95
[2021-05-14 09:19] LABS: Bilirubin Negative (Negative); Blood Moderate (Negative); Clarity Cloudy (Clear); Glucose 100 mg/dL (Negative); Ketones Negative (Negative); Leukocyte Esterase Large (Negative); Nitrite Negative (Negative); Specific Gravity 1.025 (1.005-1.025); Urobilinogen 0.2 EU/dL (Up TO 0.2); pH 5.5 (5-8)
[2021-05-14 09:28] LABS: Bacteria Few HPF (Negative); C & S Indicated? Yes; Casts 3-5 Hyaline LPF (Negative); Crystals Negative HPF (Negative); Epithelial Cells Few HPF (Negative); Mucus Negative (Negative); RBC 20-50 HPF (0-2); WBC >50 HPF (0-5)
--- NOTE | 2021-05-14 09:45 | W.ED.GENAD ---
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 Primary Care Provider: Unknown,Unknown ED Provider: Errol Franklin Home Meds and New Rx's Prescriptions: New ciprofloxacin HCl [Cipro] 500 mg tablet 500 mg PO BID Qty: 13 0RF Continued omeprazole 20 mg Capsule,Delayed Release(Dr/Ec) 20 mg PO DAILY 0RF finasteride 5 mg Tablet 5 mg PO DAILY 0RF budesonide-formoterol [Symbicort] 160-4.5 mcg/actuation Hfa Aerosol Inhaler 160 INHALATION PRN PRN0RF metformin 500 mg tablet 500 mg PO BID 0RF Label Comments: take 1 tablet by mouth twice a day FOR DIABETES Discontinued sulfamethoxazole-trimethoprim 800-160 mg tablet 1 tab PO BID 0RF Label Comments: take 1 tablet by mouth twice a day for 10 days FOR URINARY INFECTION Discharge Instructions Instructions: Enlarged Prostate (BPH) (ED), Urinary Tract Infection in Men (ED), Farah Catheter Placement and Care (ED) Additional Instructions: Please continue to stay well-hydrated and take antibiotics as prescribed. As discussed watch for any abnormal side effects from the antibiotics such as muscle pain, tendon pain, ankle pain, joint pain, or other adverse effects. If these occur please immediately stop the new antibiotic and follow-up with your primary care provider. We will contact you if we need to change your antibiotic based upon your culture result otherwise take the antibiotic until fully completed. Please perform Farah catheter care as discussed and follow-up with [place] urology department for removal of catheter. If you develop any fever chills, vomiting, worsening of symptoms or further concerns feel free to return immediately to the emergency department for reassessment and further treatment as needed. Referrals: [facility] [Outside] Discharge Data Discharge Date/Time-TO BE ENTERED AT DEPARTURE: 05/14/21 10:47 Medical Decision Making Patient presenting to the emergency department with chief complaint of burning urination, urinary frequency, and urinary retention. Patient does report that he has long ongoing history of BPH with urology recommending surgery years ago and at that time he refused. He is pending a referral back to urology as he is starting to reconsider given his current symptoms. Patient also was recently placed on Bactrim due to primary care noticing a UTI. Patient has taken 4 doses and noted continued worsening of symptoms and not improving. Patient denies any fever chills, confusion, flank or back pain. Physical exam is unremarkable for any worrisome findings. I doubt at this time patient has pyelonephritis or any severe systemic illness. I suspect that patient is having UTI symptoms due to urinary retention given BPH. Discussed with patient risk versus benefit of catheterization and changing the antibiotic compared to just antibiotic change and trial of Pyridium. After discussion of risk versus benefit both patient and feel comfortable with catheterization and urology follow-up. 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 Did discuss side effects of cipro to watch out for. They did state comfortability with this medication again given history of using it and the effectiveness. Patient was placed upon care management follow-up list for urology appointment at the [place] for catheter reassessment along with reassessment for his chronic prostate issues. Review of urinalysis shows obvious signs of infection. We will continue with plan of Cipro and catheterization. Urine culture is pending Coud? Farah catheter was inserted by nursing staff without any major complication. Between 2-300 mL of urine that was immediately drained from the bladder confirming some of patient's issues are from retention. After discussion of diagnosis and plan of care patient has no further needs, questions, or concerns and states clear understanding to return to the emergency department for any worsening symptoms. Medical Records Medical records reviewed: Yes I reviewed the patient's medical records. Lab Data Lab results reviewed: Yes I reviewed the patient's lab results. Labs: 05/14/21 09:12 Urine - Reflex from Ua Urine Culture - Pending Laboratory Tests Range/Units 05/14/21 09:12 Urine Color (Yellow) Yellow Urine Clarity (Clear) Cloudy Urine pH (5-8) 5.5 Ur Specific [place] (1.005-1.025) 1.025 Urine Protein (Negative) mg/dL 100 H Urine Ketones (Negative) mg/dL Negative Urine Blood (Negative) Moderate H Urine Nitrite (Negative) Negative Urine Bilirubin (Negative) Negative Urine Urobilinogen (Up TO 0.2) EU/dL 0.2 Ur Leukocyte Esterase (Negative) Large H Urine RBC (0-2) HPF 20-50 H Urine WBC (0-5) HPF >50 H Ur Epithelial Cells (Negative) HPF Few Urine Crystals (Negative) HPF Negative Urine Bacteria (Negative) HPF Few Urine Casts (Negative) LPF 3-5 Hyaline Urine Mucus (Negative) Negative Ur Culture Indicated? Yes Urine Glucose (Negative) mg/dL 100 HPI General Mode of arrival: ambulatory. Date/Time Provider Initiated Documentation: 05/14/21 09:02. Limitations to Documentation: no limitations. Information obtained by: patient, family, RN/MD, RN notes reviewed and old records reviewed. History of Present Illness 75 year old M presents to the emergency department with the chief complaint of Urinary retention and burning with urination, described as mild and moderate, with intensity rated at 4. Quality is described as burning, and is localized to the genitals. Patient reports no radiation. Patient started experiencing this week(s) (2) and it has been intermittent. improves with No relieving factors improve symptom(s), No exacerbating factors reported . Patient notes no other symptoms.. Patient did receive the following treatments prior to arrival, other (4 doses of Bactrim) Related Data Home Medications Medication Instructions Recorded Confirmed finasteride 5 mg tablet 5 mg PO DAILY 07/07/18 04/17/19 omeprazole 20 mg capsule,delayed 20 mg PO DAILY 07/07/18 05/14/21 release budesonide-formoterol HFA 160 160 INHALATION PRN PRN 04/17/19 mcg-4.5 mcg/actuation aerosol inhaler (Symbicort) ciprofloxacin HCl 500 mg tablet 500 mg PO BID #13 tab 05/14/21 (Cipro) metformin 500 mg tablet 500 mg PO BID 05/14/21 05/14/21 Previous Rx's Medication Instructions Recorded ciprofloxacin HCl 500 mg tablet 500 mg PO BID #13 tab 05/14/21 (Cipro) Allergies Allergy/AdvReac Type Severity Reaction Status Date / Time cimetidine [From Tagamet] Allergy Severe Other (See Unverified 05/14/21 09:14 Comment) General Stated Complaint: Urinary RAYMON: 3 Review of Systems Constitutional Constitutional: Denies body ache(s), Denies chills, Denies fever(s), Denies malaise and Denies weakness Cardiovascular Cardiovascular: Denies chest pain Respiratory Respiratory: Reports system reviewed and no additional complaints, except as documented Gastrointestinal Gastrointestinal: Denies abdominal pain, Denies nausea and Denies vomiting Genitourinary Genitourinary: Reports as per HPI, Denies hematuria, Reports difficulty urinating, Denies genital pain, Reports dysuria, Denies penile discharge, Denies scrotal swelling, Denies testicular mass, Denies testicular pain, Reports urinary frequency, Reports urinary hesitancy and Reports urinary urgency Integumentary/Breasts Skin/Breast: Denies erythema and Denies rash Neurologic Neurologic: Denies confusion and Denies weakness Psychiatric Psychiatric: Denies confusion PFSH All Active Problems (Updated 05/14/21 @ 10:27 by Errol Franklin NP) BPH with obstruction/lower urinary tract symptoms (Acute) Medical History Benign prostate hyperplasia COPD (chronic obstructive pulmonary disease) Social History Smoking/Tobacco Use Status: Former Tobacco Use Smoking risk assessment performed?: Yes Alcohol Intake: current Alcohol Intake frequency: holidays/special occasions only Drug use: Never Substance use type: does not use Do you feel safe at home: Yes Do you feel safe in your relationship?: Yes Exam Const General: cooperative and no acute distress Orientation: alert, awake and oriented x3 Resp Effort & Inspection: normal respiratory effort and able to speak in complete sentences Auscultation: clear to auscultation bilaterally Cardio Rate: regular rate Rhythm: regular rhythm Heart Sounds: S1 normal and S2 normal GI Palpation: tender suprapubicly Back/Spine/Pelvis Back: no CVA tenderness Neuro General: patient alert, patient awake and patient oriented x3 Extrem General: capillary refill normal Course Vital Signs Vital signs: Vital Signs Temperature 36.6 C 05/14/21 09:05 Pulse 95 H 05/14/21 09:05 Respiratory Rate 18 05/14/21 09:05 Blood Pressure 120/73 05/14/21 09:05 Pulse Oximetry 95 05/14/21 09:05 Temperature 36.6 C 05/14/21 09:05 Temperature Source Temporal Artery Scan 05/14/21 09:05 Pulse 95 H 05/14/21 09:05 Respiratory Rate 18 05/14/21 09:05 Respiratory Effort Non-Labored 05/14/21 09:15 Blood Pressure 120/73 05/14/21 09:05 Blood Pressure Position Sitting 05/14/21 09:05 Pulse Oximetry 95 05/14/21 09:05 Oxygen Delivery Method Room Air 05/14/21 09:05 Oxygen Flow Rate 0 05/14/21 09:05 Pain Level 4 05/14/21 09:21 Lab/Test Results Lab/Test Results: 05/14/21 09:12 Urine - Reflex from Ua Urine Culture - Pending Laboratory Tests Range/Units 05/14/21 09:12 Urine Color (Yellow) Yellow Urine Clarity (Clear) Cloudy Urine pH (5-8) 5.5 Ur Specific [place] (1.005-1.025) 1.025 Urine Protein (Negative) mg/dL 100 H Urine Ketones (Negative) mg/dL Negative Urine Blood (Negative) Moderate H Urine Nitrite (Negative) Negative Urine Bilirubin (Negative) Negative Urine Urobilinogen (Up TO 0.2) EU/dL 0.2 Ur Leukocyte Esterase (Negative) Large H Urine RBC (0-2) HPF 20-50 H Urine WBC (0-5) HPF >50 H Ur Epithelial Cells (Negative) HPF Few Urine Crystals (Negative) HPF Negative Urine Bacteria (Negative) HPF Few Urine Casts (Negative) LPF 3-5 Hyaline Urine Mucus (Negative) Negative Ur Culture Indicated? Yes Urine Glucose (Negative) mg/dL 100
--- NOTE | 2021-05-14 09:46 | NUR.NOTE ---
Nursing Note: Pt info given to care management to be seen by [facility] services for BPH, UTI & Farah placement. Larissa, ED
[2021-05-14] MEDS: Lidocaine 2% Jelly 11 ML SYR UR (10:21)
[2021-05-14] MEDS: Ciprofloxacin 500 MG TAB PO (10:29)
[2021-05-14] MEDS: Phenazopyridine 200 MG TAB PO (10:30)
== END 2021-05-14 10:47 | disposition home or self-care (01) ==
PROVIDERS: Emergency Provider Nurse Practitioner Family
DX: N40.1 Benign prostatic hyperplasia with lower urinary tract symptoms (principal); R33.8 Other retention of urine; N39.0 Urinary tract infection, site not specified
CPT/HCPCS: 51702; 99283; 81003; 81015; 87086

== ENCOUNTER 2021-05-14 11:55 | Emergency (ER) | payer OTHER, SELFPAY ==
[2021-05-14 12:01] VITALS: BP 131/66; PULSE 97; RESP 16; TEMP 36.4; O2SAT 96
[2021-05-14] MEDS: Lidocaine 2% Jelly 6 ML SYR (12:10)
--- NOTE | 2021-05-14 12:32 | W.EDPROG ---
Date of service: 05/14/21 Time of Service: 12:05 Medical Decision Making Please see previous emergency department documentation for patient's HPI, exam, and disposition. Patient is returning to the emergency department for reinsertion of Farah catheter. Patient had coud? catheter placed in emergency department this morning and went home and while changing clothing accidentally removed the catheter. Patient denies any other new or change in symptoms. Regular catheter was placed by member of technical staff without significant complication. Patient to continue recommended plan of care along with return and follow-up precautions. 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
== END 2021-05-14 12:35 | disposition home or self-care (01) ==
PROVIDERS: Emergency Provider Nurse Practitioner Family
DX: N40.1 Benign prostatic hyperplasia with lower urinary tract symptoms (principal); R33.8 Other retention of urine
CPT/HCPCS: 51702; 99283; 81003; 81015; 87086

== ENCOUNTER 2021-05-15 09:10 | Emergency (ER) | payer OTHER, SELFPAY ==
[2021-05-15 09:14] VITALS: BP 115/69; PULSE 85; RESP 16; TEMP 36.6; O2SAT 97
--- NOTE | 2021-05-15 09:27 | ED.GENADUL_ITS ---
Discharge Plan Disposition Patient Disposition: HOME Condition: Stable Discharge Details Clinical Impression: Encounter for Farah catheter fitting and adjustment Primary Care Provider: Unknown,Unknown ED Provider: Thais Fox Home Meds and New Rx's Prescriptions: Continued omeprazole 20 mg Capsule,Delayed Release(Dr/Ec) 20 mg PO DAILY 0RF finasteride 5 mg Tablet 5 mg PO DAILY 0RF budesonide-formoterol [Symbicort] 160-4.5 mcg/actuation Hfa Aerosol Inhaler 1 inh INHALATION PRN PRN0RF metformin 500 mg tablet 500 mg PO BID 0RF Label Comments: take 1 tablet by mouth twice a day FOR DIABETES ciprofloxacin HCl [Cipro] 500 mg tablet 500 mg PO BID Qty: 13 0RF Discharge Instructions Instructions: Farah Catheter Placement and Care (ED), How to Change a Catheter Drainage Bag (DC) Additional Instructions: Please keep your urology appointment. If you do not hear from them by Monday or Monday please call to make an appointment. Please return to the ER for any concerns. The leg bag was changed out today. Follow up with primary care provider in 3-5 days. Return to ED sooner if any worsening or concerns. Increase oral fluids. Referrals: Reece Sawant MD [ [facility] STAFF PHYSICIAN] - 5 days Medical Decision Making 75-year-old male presents to the ER for a Farah check. Patient had a Farah catheter placed yesterday while here in the department. Patient and family report that the initial catheter did not have a balloon in it so when they return to the department later it fell out. They had it reinserted this time with a balloon inflated. However the report overnight patient woke up with bed so with the attachment and bag leaking. On initial exam there is leaking on the catheter bag. No other associated symptoms or concerns at this time. Farah leg bag changed out by myself and staff trainer. Patient is awaiting a follow-up appointment with urology. 32: Farah leg bag changed out will observe patient for approximately 10 to 15 minutes I did instruct him to move around a little bit to make sure it is not leaking. We will encourage patient to keep follow-up appointment with urology. 0948: Patient reevaluation, no leaking noted from the leg bag, is draining with difficulty. Further instructions given by myself and staff trainer for patient's home care. Patient family was given alcohol wipe and instructions on home care. They verbalized understanding. All their questions were answered to the best my ability. Patient discharged from department. HPI General Mode of arrival: ambulatory . Date/Time Provider Initiated Documentation: 05/15/21 09:14 . Limitations to Documentation: no limitations . Information obtained by: patient, family, RN notes reviewed and old records reviewed . HPI Narrative: 75-year-old male presents to the ER for a Farah check. Patient had a Farah catheter placed yesterday while here in the department. Patient and family report that the initial catheter did not have a balloon in it so when they return to the department later it fell out. They had it reinserted this time with a balloon inflated. However the report overnight patient woke up with bed so with the attachment and bag leaking. On initial exam there is leaking on the catheter bag. No other associated symptoms or concerns at this time. Farah leg bag changed out by myself and staff trainer. Patient is awaiting a follow-up appointment with urology. Related Data Home Medications Medication Instructions Recorded Confirmed finasteride 5 mg tablet 5 mg PO DAILY 07/07/18 05/15/21 omeprazole 20 mg capsule,delayed 20 mg PO DAILY 07/07/18 05/15/21 release budesonide-formoterol HFA 160 1 inh INHALATION PRN PRN 04/17/19 05/15/21 mcg-4.5 mcg/actuation aerosol inhaler (Symbicort) ciprofloxacin HCl 500 mg tablet 500 mg PO BID #13 tab 05/14/21 05/15/21 (Cipro) metformin 500 mg tablet 500 mg PO BID 05/14/21 05/15/21 Previous Rx's Medication Instructions Recorded ciprofloxacin HCl 500 mg tablet 500 mg PO BID #13 tab 05/14/21 (Cipro) Allergies Allergy/AdvReac Type Severity Reaction Status Date / Time cimetidine [From Tagamet] AdvReac Severe palpitation Unverified 05/15/21 09:23 s General Stated Complaint: Recheck RAYMON: 5 Review of Systems Genitourinary Genitourinary: Reports as per HPI and Reports other (leaking Farah bag) PFSH All Active Problems (Updated 05/15/21 @ 09:36 by Thais Fox) BPH with obstruction/lower urinary tract symptoms (Acute) Encounter for Farah catheter fitting and adjustment (Acute) Medical History Benign prostate hyperplasia COPD (chronic obstructive pulmonary disease) Social History Smoking/Tobacco Use Status: Former Tobacco Use Smoking risk assessment performed?: Yes Alcohol Intake: current Alcohol Intake frequency: holidays/special occasions only Drug use: Never Substance use type: does not use Do you feel safe at home: Yes Do you feel safe in your relationship?: Yes Exam Male General Exam: Yes normal external exam Penis: normal penis Meatus: meatus normal Scrotum: scrotum normal Other: As per HPI Course Vital Signs Vital signs: Vital Signs Temperature 36.6 C 05/15/21 09:14 Pulse 85 05/15/21 09:14 Respiratory Rate 16 05/15/21 09:14 Blood Pressure 115/69 05/15/21 09:14 Pulse Oximetry 97 05/15/21 09:14 Temperature 36.6 C 05/15/21 09:14 Temperature Source Skin 05/15/21 09:14 Pulse 85 05/15/21 09:14 Respiratory Rate 16 05/15/21 09:14 Respiratory Effort 05/15/21 09:14 Blood Pressure 115/69 05/15/21 09:14 Blood Pressure Position Supine 05/15/21 09:14 Pulse Oximetry 97 05/15/21 09:14 Oxygen Delivery Method Room Air 05/15/21 09:14 Oxygen Flow Rate 0 05/15/21 09:14 Pain Level 0 05/15/21 09:14
== END 2021-05-15 09:52 | disposition home or self-care (01) ==
PROVIDERS: Emergency Provider Registered Nurse Emergency
DX: T83.038A Leakage of other urinary catheter, initial encounter (principal)
CPT/HCPCS: 99281

== ENCOUNTER 2024-02-28 15:10 | Emergency (ER) | payer OTHER, SELFPAY ==
--- NOTE | 2024-02-28 15:15 | RT.EKG_ITS ---
APPROVED REPORT Exam: Resting ECG Reason for Exam: Difficulty Breathing Patient Location: E HR:67 bpm ECG Measurements Heart Rate 67 AXIS NC 184 P 68 QRSd 88 QRS 35 QT 372 T 61 QTc 394 Conclusion Sinus rhythm, rate 67 No interval abnormalities PAC No STEMI No priors available for comparison
[2024-02-28 15:18] VITALS: BP 137/80; PULSE 71; RESP 20; TEMP 36.1; O2SAT 97
[2024-02-28 15:23] VITALS: RESP 24
--- NOTE | 2024-02-28 15:39 | DI.RAD_ITS ---
Exam(s) XR CHEST 2V PA LATERAL EXAM: XR CHEST 2V PA LATERAL CLINICAL HISTORY: cough 1.5 months TECHNIQUE: 2D digital imaging was performed. Two views. COMPARISON: No exams were available for comparison FINDINGS: HEART: Normal size. Aorta: Not dilated. PULMONARY VASCULATURE: Normal. MEDIASTINUM: Unremarkable. LUNGS: No area focal consolidation. No evidence of pulmonary edema. Chronic appearing interstitial changes greatest at the left lung base. PLEURAL SPACE: No pleural effusion or pneumothorax. BONE:Unremarkable for age. SOFT TISSUES: Unremarkable. IMPRESSION: No acute abnormality. DATA REPOSITORY: RADIATION DOSE DELIVERED:
--- NOTE | 2024-02-28 15:40 | ED.GENADUL_ITS ---
Discharge Plan Disposition Patient Disposition: Home Condition: Stable Discharge Details Clinical Impression: Cough Primary Care Provider: Unknown,Unknown ED Provider: Anna Rapp Home Meds and New Rx's Prescriptions: New albuterol sulfate [Ventolin HFA] 90 mcg/actuation Hfa Aerosol Inhaler 2 puff inhalation DISPENSE Qty: 0 0RF No Action omeprazole 20 mg Capsule,Delayed Release(Dr/Ec) 20 mg PO DAILY finasteride 5 mg Tablet 5 mg PO DAILY budesonide-formoterol [Symbicort] 160-4.5 mcg/actuation Hfa Aerosol Inhaler 1 inh INHALATION PRN PRN metformin 500 mg tablet 500 mg PO BID Patient Comments: take 1 tablet by mouth twice a day FOR DIABETES Discharge Instructions Instructions: Cough, Adult ED Additional Instructions: You were seen in the emergency department today for evaluation of a cough that has been present for the last month and a half. In our department you had a full physical examination performed, and had an x-ray that did not show any significant abnormalities to explain your cough. I did provide you with a albuterol inhaler and a spacer which you can continue to use at home. You had an EKG that did not show sign of heart attack. The neck step will be for you to call your primary care provider to schedule an appointment to discuss next steps in workup and management of your cough. You could also return to the emergency department especially if you develop shortness of breath, chest pain, fever or chills, or other conditions that cause you concern. Thank you for allowing us to be part of your care. HPI General Mode of arrival: ambulatory . Date/Time Provider Initiated Documentation: 02/28/24 15:22 . Limitations to Documentation: no limitations . Information obtained by: patient and old records reviewed . HPI Narrative: HPI: This is a 78-year-old male patient with a past medical history significant for COPD, GERD, presenting for evaluation of cough for 1 and half months. The patient reports that he got a postcard from the [facility] saying that he needed to schedule a follow-up appointment, and when he called to do so he told them about his cough. He feels like he has had some intermittent sinus and nasal congestion, and states that he has postnasal drip that causes him to cough intermittently. He states that they told him he needed to get a chest x-ray performed, but when he presented to the hospital today there was no order for chest x-ray at our diagnostic imaging department. He came to the emergency department for evaluation. The patient reports that today his work of breathing is actually quite good, he has not noted any significant coughing. He is not experiencing any chest pain, fevers, chills, and has had no recent sick contacts. He uses his Symbicort inhaler as needed. The patient reports that he has not had any productive cough, no hemoptysis, though he does occasionally have a sensation that he needs to vomit after an episode of coughing. He has been eating and drinking normally and is otherwise in his normal state of health. He requests assistance in learning how to use a spacer at this visit today. Exam: Gen: Awake and alert, in no apparent distress HEENT: Non-icteric sclera Neck: Supple Lungs: No apparent respiratory distress, normal respiratory effort. Lung sounds clear and equal without wheezes, rhonchi, rales CV: Appears well perfused, heart with regular rate and rhythm, no murmurs auscultated Abdomen: Non-distended MSK: Moves 4 extremities without apparent limitation in ROM. No peripheral edema, no unilateral calf swelling or tenderness. Skin: Visualized skin without rashes, cyanosis. Neuro: Normal Gait, no obvious focal deficits or facial asymmetry. Speaks in full, clear sentences. Psych: Appropriate for situation. MDM: This is a 78-year-old male patient with a history of COPD presenting for evaluation of 1-1/2 months of intermittent cough. Differential includes but is not limited to COPD exacerbation, pneumonia, bronchitis, certainly considered pulmonary edema, pleural effusion, pneumothorax. The patient has intermittent upper respiratory symptoms but no fever or hypoxia at this time. I considered URI, the patient is not desiring of any testing for COVID or influenza at this time, and given the duration of symptoms I do not see that this would change his management in any way. He has no chest pain to suggest ACS, pericarditis or myocarditis. I obtained an EKG, which shows a sinus rhythm without evidence of ischemia, interval abnormality, or significant ectopic burden. We will obtain a two-view chest x-ray. I also provided the patient with an order for albuterol inhaler and spacer and he will be educated on its use. Given the patient's hemodynamic stability, the duration of symptoms, and the fact that he was not tending to have an outpatient imaging study performed, we can hold on laboratory studies and acute interventions at this time. ED Course: Independently interpreted the patient's chest x-ray, which shows no significant abnormalities to account for his symptoms. He was counseled on the use of the albuterol inhaler and spacer. I see no evidence on my physical examination for significant COPD exacerbation which would require steroid administration or antibiotics. At this time, the patient has had a full medical evaluation and is safe for discharge to home. They are hemodynamically stable, ambulatory, and tolerating PO. They are understanding of the follow-up plan and return precautions. They left our facility without incident. nAna Rapp MD Related Data Home Medications ?Medication ?Instructions ?Recorded ?Confirmed finasteride 5 mg tablet 5 mg PO DAILY 07/07/18 02/28/24 omeprazole 20 mg capsule,delayed 20 mg PO DAILY 07/07/18 02/28/24 release budesonide-formoterol HFA 160 1 inh inhalation PRN PRN 04/17/19 02/28/24 mcg-4.5 mcg/actuation aerosol inhaler (Symbicort) metformin 500 mg tablet 500 mg PO BID 05/14/21 02/28/24 albuterol sulfate 90 mcg/actuation 2 puff inhalation DISPENSE #0 grams 02/28/24 aerosol inhaler (Ventolin HFA) Previous Rx's ?Medication ?Instructions ?Recorded albuterol sulfate 90 mcg/actuation 2 puff inhalation DISPENSE #0 grams 02/28/24 aerosol inhaler (Ventolin HFA) Allergies Allergy/AdvReac Type Severity Reaction Status Date / Time cimetidine (From Tagamet) AdvReac Severe palpitation Unverified 02/28/24 15:39 s General Stated Complaint: SOB RAYMON: 3 Course Vital Signs Vital signs: Vital Signs Temperature 36.1 C L 02/28/24 15:18 Pulse 71 02/28/24 15:18 Respiratory Rate 20 02/28/24 15:18 Blood Pressure 137/80 02/28/24 15:18 Pulse Oximetry 97 02/28/24 15:18 Temperature 36.1 C L 02/28/24 15:18 Temperature Source Tympanic 02/28/24 15:18 Pulse 71 02/28/24 15:18 Respiratory Rate 24 02/28/24 15:23 Respiratory Effort Short of Breath 02/28/24 15:23 Respiratory Depth Normal 02/28/24 15:23 Respiratory Pattern Normal 02/28/24 15:23 Blood Pressure 137/80 02/28/24 15:18 Blood Pressure Position Sitting 02/28/24 15:18 Pulse Oximetry 97 02/28/24 15:18 Oxygen Delivery Method Room Air 02/28/24 15:18 Oxygen Flow Rate 0 02/28/24 15:18 Pain Level 0 02/28/24 15:37 Medical Decision Making Quality:SDOH Health Related Social Needs: No Data to Display PFSH All Active Problems (Updated 02/28/24 @ 16:32 by Anna Rapp MD) Cough (Acute) Medical History Benign prostate hyperplasia COPD (chronic obstructive pulmonary disease) Social History Smoking/Tobacco Use Status: Former Tobacco Use Smoking risk assessment performed?: Yes Alcohol Intake: current Alcohol Intake frequency: holidays/special occasions only Drug use: Never Substance use type: does not use Housing: house Do you feel safe at home: Yes Do you feel safe in your relationship?: Yes
[2024-02-28] MEDS: Inhaler, Assist Device 1 EACH MC (16:13)
[2024-02-28] MEDS: Albuterol HFA 8 GM 60 PUFF INH IH (16:13)
[2024-02-28 16:50] VITALS: BP 133/76; PULSE 76; RESP 14; O2SAT 95
== END 2024-02-28 16:51 | disposition home or self-care (01) ==
PROVIDERS: Emergency Provider Emergency Medicine
DX: R05.9 Cough, unspecified (principal); Z87.09 Personal history of other diseases of the respiratory system
CPT/HCPCS: 93005; 99284; 71046; 93010

== ENCOUNTER 2024-06-21 06:42 | Day surgery (SDC) | payer OTHER, SELFPAY ==
--- NOTE | 2024-06-21 06:18 | ANES.PREOP_ITS ---
General Info Date of Service Date Performed: 06/21/24 Height: 5 ft 9 in Weight: 113.398 kg Body Mass Index (BMI): 36.9 Surgical Procedure: Operation Date: 06/21/24 08:40 Proposed Procedure Side Surgeon p Cataract Extraction with IOL Implant Left Jaime Mao MD Meds Allergies and Home Medications Allergies Allergy/AdvReac Type Severity Reaction Status Date / Time cimetidine (From [facility]) AdvReac Severe palpitation Verified 06/21/24 07:19 s Home Medication ?Medication ?Instructions ?Recorded finasteride 5 mg tablet 5 mg PO DAILY 07/07/18 omeprazole 20 mg capsule,delayed 20 mg PO DAILY 07/07/18 release budesonide-formoterol HFA 160 1 inh inhalation PRN PRN 04/17/19 mcg-4.5 mcg/actuation aerosol inhaler (Symbicort) metformin 500 mg tablet 500 mg PO BID 05/14/21 acetaminophen 325 mg capsule 325 mg PO Q6H PRN 06/18/24 albuterol sulfate 90 mcg/actuation 2 puff inhalation QID PRN 06/18/24 aerosol inhaler (Ventolin HFA) cetirizine 10 mg capsule (Allergy 10 mg PO DAILY PRN 06/18/24 Relief (cetirizine)) fluticasone propionate 50 2 spray intranasal DAILY PRN 06/18/24 mcg/actuation nasal spray,suspension (Allergy Relief (fluticasone)) losartan 25 mg tablet 25 mg PO DAILY 06/18/24 metronidazole 0.75 % topical cream 1 applic topical BID 06/18/24 (MetroCream) multivitamin (Daily Multi-Vitamin 1 tab PO DAILY 06/18/24 tablet) nitrofurantoin 100 mg PO DIRECTED 06/18/24 monohydrate/macrocrystals 100 mg capsule tadalafil 20 mg tablet (Cialis) 20 mg PO DAILY PRN 06/18/24 Current Visit Medications: Current Medications Generic Name Dose Route Start Last Admin Trade Name Freq PRN Reason Stop Dose Admin Acetaminophen 1,000 mg 06/21/24 06:00 Acetaminophen 500 Mg Tab PO 07/21/24 05:59 Q4H PRN PRN Balanced Salt Solution 500 ml 06/21/24 06:00 Balanced Salt Soln.-Plus 500 Ml Bag OP 07/21/24 05:59 DIRECTED [facility] Miscellaneous Medication 0 ml 06/21/24 06:00 Prednisolone 1%, Moxifloxacin 0.5%, Bromfenac 0.09% 5.6ml Btl OS 07/21/24 05:59 DIRECTED [facility] Miscellaneous Medication 0 ml 06/21/24 06:00 Tropicam./Phenyleph. (1/2.5%) 5 Ml Btl OS 07/21/24 05:59 DIRECTED [facility] Tetracaine HCl 0 ml 06/21/24 06:00 Tetracaine 0.5% 4 Ml Btl OS 07/21/24 05:59 DIRECTED [facility] PFSH Active Problems Active Problems: Problem Status Onset Code Cortical age-related cataract, right eye Acute H25.011 Nuclear age-related cataract, right eye Acute H25.11 Medical History Medical History (Updated 06/20/24 @ 19:49 by Jaime Mao MD) Ventral hernia Low back pain Cataract Elevated PSA With LUTS Rosacea Arthritis Cognitive decline GERD (gastroesophageal reflux disease) Hyperlipemia HTN (hypertension) Diabetes type 2 Benign prostate hyperplasia COPD (chronic obstructive pulmonary disease) Surgical History Surgical History History of surgery 3 Trigger finger left, 3 trigger finger right. Tobacco Smoking/Tobacco Use Status: Former Tobacco Use Alcohol Alcohol Intake: current Alcohol intake frequency: holidays/special occasions only Substance Use Substance use: Never Substance use type: does not use Vital Signs and Lab Results Vital Signs Most Recent Vital Signs in EMR: Temp Pulse Resp BP Pulse Ox 36.2 C L 89 16 146/91 H 96 06/21/24 07:11 06/21/24 07:11 06/21/24 07:11 06/21/24 07:11 06/21/24 07:11 Lab Results Blood Type / Crossmatch: No Data to Display Complete Blood Count: No Data to Display Complete Metabolic Panel: No Data to Display Liver Function Panel: No Data to Display Coagulation Panel: No Data to Display Cardiac Panel: No Data to Display Arterial Blood Gas: No Data to Display Venous Blood Gas: No Data to Display Pancreas Panel: No Data to Display Thyroid Panel: No Data to Display Infectious Disease: No Data to Display Blood Cultures: No Data to Display Toxicology Panel: No Data to Display Anesthesia Assessment and Plan Anesthesia History Personal History: No History of Anesthesia Complications Family History: No Family History of Anesthesia Complications Exercise Tolerance Exercise Tolerance: Metabolic Equivalents>4 Cardiac & Pulmonary Exam Cardiac Exam: Normal S1/S2 Heart Sounds Pulmonary Exam: Clear Bilateral Breath Sounds Implantable Cardiac Device Does patient have a Pacemaker or an ICD?: No Airway Exam Known Difficult Airway: No Mallampati Class: 3 Mouth Opening: Normal (> 3cm) Thyromental Distance: Less than 3 cm Neck Range of Motion: Limited ROM Neck Circumference: Normal Teeth Condition: Generalized Poor Dentition ASA Classification ASA Score: ASA 2 Emergency Case?: No NPO Status NPO Status: NPO Clears >2 hours, Solids >8 hours Anesthesia Plan Resuscitation Status: Full Code Anesthesia Technique: MAC Anesthesia Airway Planned: Natural Airway Monitors Used: Standard Monitors Preoperative Comments:: 78 yo male for cataract. Sig PMHx: HTN (losartan), COPD (albuterol, symbicort), GERD (omeprazole), DM2 (metformin - no longer on), cognitive decline, BPH (finasteride). former smoker, occ EtOH. ECG: sinus, PAC Discussed plan of MAC with no MKO and that if needed an IV can be placed to give some sedation as needed.
[2024-06-21 07:11] VITALS: BP 146/91; PULSE 89; RESP 16; TEMP 36.2; O2SAT 96
[2024-06-21] MEDS: Tropicam./Phenyleph. (1/2.5%) 5 ML BTL OS ×3 (07:13→07:28)
[2024-06-21 07:22] VITALS: BMI 36.9
[2024-06-21] MEDS: Moxifloxacin-PF 1 MG/ML VIAL (08:20)
[2024-06-21] MEDS: Lidocaine 1% Pres-Free 5 ML VIAL (08:20)
[2024-06-21] MEDS: Duovisc Viscoelastic System EACH 1 EACH (08:20)
[2024-06-21] MEDS: Tetracaine 0.5% 4 ML BTL OS (08:20)
[2024-06-21] MEDS: Phenylephrine/Lidocaine (15/10) MG/ML 1 ML VIAL (08:22)
[2024-06-21] MEDS: Povidone-Iodine Ophth 30 ML BTL (08:22)
[2024-06-21] MEDS: Balanced Salt Soln.-PLUS 500 ML BAG OP (08:23)
[2024-06-21] MEDS: Prednisolone 1%, Moxifloxacin 0.5%, Bromfenac 0.09% 5.6ML BTL OS (08:25)
[2024-06-21 08:38] VITALS: BP 139/76; PULSE 68; RESP 16; TEMP 36.3; O2SAT 97
--- NOTE | 2024-06-21 08:39 | W.PM.DSUDISC ---
Date of service: 06/21/24 Discharge Plan Disposition Patient Disposition: Home Discharge Details Attending Provider: Jaime Mao Primary Care Provider: Unknown,Unknown Home Meds and New Rx's Prescriptions: No Action omeprazole 20 mg Capsule,Delayed Release(Dr/Ec) 20 mg PO DAILY finasteride 5 mg Tablet 5 mg PO DAILY budesonide-formoterol [Symbicort] 160-4.5 mcg/actuation Hfa Aerosol Inhaler 1 inh INHALATION PRN PRN metformin 500 mg tablet 500 mg PO BID Patient Comments: take 1 tablet by mouth twice a day FOR DIABETES 06/21/24: pt reports he is not taking this medication Allergy Relief (cetirizine) 10 mg capsule 10 mg PO DAILY PRN acetaminophen 325 mg capsule 325 mg PO Q6H PRN losartan 25 mg tablet 25 mg PO DAILY fluticasone propionate [Allergy Relief (fluticasone)] 50 mcg/actuation spray,suspension 2 spray intranasal DAILY PRN Rx Instructions: administer into each nostril metronidazole [MetroCream] 0.75 % cream 1 applic topical BID multivitamin [Daily Multi-Vitamin] Tablet 1 tab PO DAILY nitrofurantoin monohyd/m-cryst 100 mg capsule 100 mg PO DIRECTED Patient Comments: TAKE ONE CAPSULE BY MOUTH TWICE A DAY FOR 7 DAYS, TAKE WITH FOOD FOR UTI tadalafil [Cialis] 20 mg tablet 20 mg PO DAILY PRN Rx Instructions: administer approximately 30min before sexual activity; do not use more than 1 dose per 24hrs albuterol sulfate [Ventolin HFA] 90 mcg/actuation Hfa Aerosol Inhaler 2 puff inhalation QID PRN Discharge Instructions Stand Alone Forms: DSU Post-Op CataractJorge (DSU) Discharge Orders Discharge Orders: Discharge Order (Routine); Ordered 06/21/24 Ordered By: Jaime Mao DS: Diagnosis Discharge Diagnosis (1) Nuclear age-related cataract, left eye: Status: Resolved (2) Cortical age-related cataract, left eye: Status: Resolved
--- NOTE | 2024-06-21 08:40 | W.PM.OP ---
Operative Note Operative Note PRE-OP DIAGNOSIS: Nuclear/cortical cataract, left eye POST-OP DIAGNOSIS: same PROCEDURE: Cataract extraction using phacoemulsification with intraocular lens implant, left eye SURGEON: Jaime Mao ANESTHESIA TYPE: Local By Surgeon and MAC Refer to Anesthesia Record PATHOLOGY: none sent COMPLICATIONS: None Patient was transported to: same day Patient's condition: stable Implants: Aureliano Clareon [id number] Indications: Progressive decreased vision due to cataract, left eye Procedure Description: CATARACT SURGERY OPERATIVE REPORT PREOPERATIVE DIAGNOSIS: Nuclear/cortical cataract, left eye POSTOPERATIVE DIAGNOSIS: Same OPERATION: Cataract extraction using phacoemulsification with posterior chamber intraocular lens implant, left eye. IOL: IOL Furniture Fabricator/Model: Aureliano Clareon [id number] IOL Power: + 18.5 diopters IOL Serial Number: [id number] Optic Diameter: 6.0mm Haptic/Overall Diameter: 13.0mm PHACO INFO: Aureliano Centurion Vision System with OZil and Active Fluidics Cumulative Dispersed Energy (CDE): 9.77 seconds SURGEON: Jaime Mao MD, NAYE ANESTHESIA: Monitored Anesthesia Care (MAC), with local sub-tenon's anesthetic infiltration COMPLICATIONS: None SPECIMENS: None INDICATIONS FOR PROCEDURE: The patient is a 78-year-old male with history of diminished visual acuity in both eyes secondary to the development of bilateral nuclear/cortical cataract. He is significantly symptomatic that he desires cataract surgery in attempt to improve and maximize his vision. The option of cataract surgery was offered and he wished to proceed. See office notes for detailed information. PROCEDURE: The correct surgical eye was identified and marked as the left eye and the pupil was dilated in the preoperative area using mydriatics and cycloplegics. The dilated pupil size was 7.0 mm. The patient elected to proceed without oral sedation. The patient was brought to the operating room where cardiopulmonary monitoring was instituted and surgical time-out was performed, confirming the correct operative eye and IOL power. Topical anesthesia was administered and ophthalmic povidone-iodine 5% was instilled into the conjunctival fornices. The jaron-ocular area was prepped with Betadine 10% solution and draped in the usual sterile fashion for intraocular surgery, including an aperture drape. A Tegaderm transparent film dressing was cut in half and used to cover the lashes and lid margins. Care was taken to sequester the lashes and lid margins under the Tegaderm dressing. A lid speculum was placed between the lids of the operative eye and the Aureliano LuxOR Revalia operating microscope was maneuvered into position. Becca scissors were then used to make a conjunctival buttonhole approximately 6mm posterior to the limbus in the inferonasal quadrant. Blunt dissection was carried out to expose bare sclera, and a blunt-tipped sub-tenon?s anesthesia cannula was introduced and passed posteriorly along the globe where non-preserved plain lidocaine was injected into posterior sub-Tenon?s space. A sideport knife was used to make a paracentesis port. Intraocular phenylephrine/lidocaine was injected into the anterior chamber. The anterior chamber was then filled with viscoelastic. A keratome knife was used construct a two-plane clear corneal tunnel extending 2.0mm into clear cornea. A flap was raised on the anterior capsule and capsulorhexis forceps were used to complete a continuous curvilinear capsulorhexis of 5.0 mm. Balanced salt solution was then used to perform cortical cleaving hydrodissection and nuclear hydrodelineation until the lens could be freely rotated within the capsular bag. The lens nucleus was then disassembled and removed within the capsular bag and iris plane using phacoemulsification. Residual cortical material was removed using the irrigation/aspiration handpiece. The posterior capsule was carefully polished to remove as much residual lens epithelial cells as safely possible. The capsular bag was then inflated and the anterior chamber deepened with viscoelastic. The lens implant described above was inserted into the capsular bag using the Aureliano Autonome Injector. A Kuglen hook was used to dial the IOL into position. Residual viscoelastic was then removed first from posterior to the IOL, then from the anterior chamber using the I/A handpiece. The lens implant was noted to center nicely within the capsular bag. The incisions were stromally hydrated, and the anterior chamber was reformed using BSS. Then 0.5cc of moxifloxacin 1.0mg/ml were injected into the capsular bag and anterior chamber. The incisions were checked with a Weck spear and found to be secure. Several drops of ophthalmic povidone-iodine 5% were then applied to the eye followed by two drops of combination steroid/NSAID/antibiotic solution. The drapes were removed and a clear plastic protective eye shield was placed over the eye. The patient was then returned to Same Day Surgery in stable condition. Date of Procedure: 06/21/24
--- NOTE | 2024-06-21 09:12 | W.ANESPOSTOP ---
Postoperative Evaluation Date, Time and Location Date Performed: 06/21/24 Time Performed: 09:00 Patient Location: Day Surgery Unit Vital Signs Most Recent Imported Vital Signs: Most Recent Vital Signs Temp Pulse Resp BP Pulse Ox 36.3 C L 68 16 139/76 97 06/21/24 08:38 06/21/24 08:38 06/21/24 08:38 06/21/24 08:38 06/21/24 08:38 Pain Score Most Recent Pain Score: Most Recent Pain Score Pain Level 0 06/21/24 08:38 Assessment Mental Status: Awake (Alert & Oriented to Patient Baseline) Airway and Respiratory Function: Patent airway with normal (patient baseline) respiratory exam Cardiovascular Function: Hemodynamically Stable Hydration Status: Adequately Hydrated Nausea & Vomiting: No Nausea or Vomiting Pain: Pt. Denies Any Pain Peripheral Nerve Block: Patient did not receive a nerve block
== END 2024-06-21 09:04 | disposition home or self-care (01) ==
LOC: SUR 06:43
PROVIDERS: Visit Provider Ophthalmology
PROC: (CPT 66984; principal; 2024-06-21 08:30)
DX: H25.12 Age-related nuclear cataract, left eye (principal); H25.012 Cortical age-related cataract, left eye; I10 Essential (primary) hypertension; J44.9 Chronic obstructive pulmonary disease, unspecified; E11.9 Type 2 diabetes mellitus without complications; K21.9 Gastro-esophageal reflux disease without esophagitis
CPT/HCPCS: 66984; 00123; V2632; J2003

== ENCOUNTER 2024-07-05 13:33 | Day surgery (SDC) | payer OTHER, SELFPAY ==
[2024-07-05 13:39] VITALS: BP 141/82; PULSE 77; RESP 20; TEMP 36.3; O2SAT 96
[2024-07-05] MEDS: Tropicam./Phenyleph. (1/2.5%) 5 ML BTL OD ×3 (13:49→14:04)
--- NOTE | 2024-07-05 14:20 | ANES.PREOP_ITS ---
General Info Date of Service Date Performed: 07/05/24 Height: 5 ft 9 in Weight: 100.1 kg Body Mass Index (BMI): 32.5 Surgical Procedure: Operation Date: 07/05/24 15:40 Proposed Procedure Side Surgeon p Cataract Extraction with IOL Implant Right Jaime Mao MD Meds Allergies and Home Medications Allergies Allergy/AdvReac Type Severity Reaction Status Date / Time cimetidine (From [facility]) AdvReac Severe palpitation Verified 07/05/24 13:55 s Home Medication ?Medication ?Instructions ?Recorded finasteride 5 mg tablet 5 mg PO DAILY 07/07/18 omeprazole 20 mg capsule,delayed 20 mg PO DAILY 07/07/18 release metformin 500 mg tablet 500 mg PO BID 05/14/21 acetaminophen 325 mg capsule 325 mg PO Q6H PRN 06/18/24 albuterol sulfate 90 mcg/actuation 2 puff inhalation QID PRN 06/18/24 aerosol inhaler (Ventolin HFA) cetirizine 10 mg capsule (Allergy 10 mg PO DAILY PRN 06/18/24 Relief (cetirizine)) fluticasone propionate 50 2 spray intranasal DAILY PRN 06/18/24 mcg/actuation nasal spray,suspension (Allergy Relief (fluticasone)) losartan 25 mg tablet 25 mg PO DAILY 06/18/24 metronidazole 0.75 % topical cream 1 applic topical BID 06/18/24 (MetroCream) multivitamin (Daily Multi-Vitamin 1 tab PO DAILY 06/18/24 tablet) tadalafil 20 mg tablet (Cialis) 20 mg PO DAILY PRN 06/18/24 Current Visit Medications: Current Medications Generic Name Dose Route Start Last Admin Trade Name Freq PRN Reason Stop Dose Admin Acetaminophen 1,000 mg 07/05/24 06:25 Acetaminophen 500 Mg Tab PO 08/04/24 06:24 Q4H PRN PRN Balanced Salt Solution 500 ml 07/05/24 06:25 Balanced Salt Soln.-Plus 500 Ml Bag OP 08/04/24 06:24 DIRECTED ARABELLA Miscellaneous Medication 0 ml 07/05/24 06:25 Prednisolone 1%, Moxifloxacin 0.5%, Bromfenac 0.09% 5.6ml Btl OD 08/04/24 06:24 DIRECTED ARABELLA Miscellaneous Medication 0 ml 07/05/24 06:25 07/05/24 14:04 Tropicam./Phenyleph. (1/2.5%) 5 Ml Btl OD 08/04/24 06:24 1 drp DIRECTED ARABELLA Administration Tetracaine HCl 0 ml 07/05/24 06:25 Tetracaine 0.5% 4 Ml Btl OD 08/04/24 06:24 DIRECTED ARABELLA PFSH Active Problems Active Problems: Problem Status Onset Code Cortical age-related cataract, left eye Resolved H25.012 Nuclear age-related cataract, left eye Resolved H25.12 Cortical age-related cataract, right eye Acute H25.011 Nuclear age-related cataract, right eye Acute H25.11 Medical History Medical History Ventral hernia Low back pain Cataract Elevated PSA With LUTS Rosacea Arthritis Cognitive decline GERD (gastroesophageal reflux disease) Hyperlipemia HTN (hypertension) Diabetes type 2 Benign prostate hyperplasia COPD (chronic obstructive pulmonary disease) Surgical History Surgical History History of surgery 3 Trigger finger left, 3 trigger finger right. Tobacco Smoking/Tobacco Use Status: Former Tobacco Use Alcohol Alcohol Intake: current Alcohol intake frequency: holidays/special occasions only Substance Use Substance use: Never Substance use type: does not use Vital Signs and Lab Results Vital Signs Most Recent Vital Signs in EMR: Most Recent Vital Signs Temp Pulse Resp BP Pulse Ox 36.3 C L 77 20 141/82 H 96 07/05/24 13:39 07/05/24 13:39 07/05/24 13:39 07/05/24 13:39 07/05/24 13:39 Lab Results Blood Type / Crossmatch: No Data to Display Complete Blood Count: No Data to Display Complete Metabolic Panel: No Data to Display Liver Function Panel: No Data to Display Coagulation Panel: No Data to Display Cardiac Panel: No Data to Display Arterial Blood Gas: No Data to Display Venous Blood Gas: No Data to Display Pancreas Panel: No Data to Display Thyroid Panel: No Data to Display Infectious Disease: No Data to Display Blood Cultures: No Data to Display Toxicology Panel: No Data to Display Imaging and Studies Imaging and Studies Study information below may be from another EMR and interpreted by another provider. Please see original notes in EMR for more complete details. EKG Summary: 02/28/24: Exam: Resting ECG Reason for Exam: Difficulty Breathing Patient Location: E HR:67 bpm ECG Measurements Heart Rate 67 AXIS LA 184 P 68 QRSd 88 QRS 35 QT 372 T61 QTc 394 Conclusion Sinus rhythm, rate 67 No interval abnormalities PAC No STEMI No priors available for comparison I have reviewed and I agree with the emergency room physician's ECG interpretation. Anesthesia Assessment and Plan Anesthesia History Personal History: No History of Anesthesia Complications Family History: No Family History of Anesthesia Complications Exercise Tolerance Exercise Tolerance: Metabolic Equivalents>4 Pertinent Negatives Pertinent Negatives: No Major Cardiovascular Symptoms or Complaints and No Major Pulmonary Symptoms or Complaints Cardiac & Pulmonary Exam Cardiac Exam: Normal S1/S2 Heart Sounds Pulmonary Exam: Clear Bilateral Breath Sounds Implantable Cardiac Device Does patient have a Pacemaker or an ICD?: No Airway Exam Known Difficult Airway: No Mallampati Class: 3 Mouth Opening: Normal (> 3cm) Thyromental Distance: Less than 3 cm Neck Range of Motion: Limited ROM Neck Circumference: Normal Teeth Condition: Generalized Poor Dentition ASA Classification ASA Score: ASA 2 Emergency Case?: No NPO Status NPO Status: NPO Clears >2 hours, Solids >8 hours Anesthesia Plan Resuscitation Status: Full Code Anesthesia Technique: MAC Anesthesia Airway Planned: Natural Airway Monitors Used: Standard Monitors
[2024-07-05 14:27] VITALS: BMI 32.5
[2024-07-05] MEDS: Povidone-Iodine Ophth 30 ML BTL (15:04)
[2024-07-05] MEDS: Tetracaine 0.5% 4 ML BTL OD (15:04)
[2024-07-05] MEDS: Duovisc Viscoelastic System EACH 1 EACH (15:08)
[2024-07-05] MEDS: Phenylephrine/Lidocaine (15/10) MG/ML 1 ML VIAL (15:09)
[2024-07-05] MEDS: Lidocaine 1% Pres-Free 5 ML VIAL (15:09)
[2024-07-05] MEDS: Balanced Salt Soln.-PLUS 500 ML BAG OP (15:10)
[2024-07-05] MEDS: Prednisolone 1%, Moxifloxacin 0.5%, Bromfenac 0.09% 5.6ML BTL OD (15:23)
[2024-07-05] MEDS: Moxifloxacin-PF 1 MG/ML VIAL (15:24)
[2024-07-05 15:28] VITALS: BP 144/83; PULSE 65; RESP 14; TEMP 36.5; O2SAT 97
--- NOTE | 2024-07-05 15:28 | W.PM.DSUDISC ---
Date of service: 07/05/24 Discharge Plan Disposition Patient Disposition: Home Discharge Details Attending Provider: Jaime Mao Primary Care Provider: [facility] Home Meds and New Rx's Prescriptions: No Action omeprazole 20 mg Capsule,Delayed Release(Dr/Ec) 20 mg PO DAILY finasteride 5 mg Tablet 5 mg PO DAILY metformin 500 mg tablet 500 mg PO BID Patient Comments: take 1 tablet by mouth twice a day FOR DIABETES 06/21/24: pt reports he is not taking this medication Allergy Relief (cetirizine) 10 mg capsule 10 mg PO DAILY PRN acetaminophen 325 mg capsule 325 mg PO Q6H PRN losartan 25 mg tablet 25 mg PO DAILY fluticasone propionate [Allergy Relief (fluticasone)] 50 mcg/actuation spray,suspension 2 spray intranasal DAILY PRN Rx Instructions: administer into each nostril metronidazole [MetroCream] 0.75 % cream 1 applic topical BID multivitamin [Daily Multi-Vitamin] Tablet 1 tab PO DAILY tadalafil [Cialis] 20 mg tablet 20 mg PO DAILY PRN Rx Instructions: administer approximately 30min before sexual activity; do not use more than 1 dose per 24hrs albuterol sulfate [Ventolin HFA] 90 mcg/actuation Hfa Aerosol Inhaler 2 puff inhalation QID PRN Discharge Instructions Stand Alone Forms: [facility] Post-[facility] Eastman ([facility]) Discharge Orders Discharge Orders: Discharge Order (Routine); Ordered 07/05/24 Ordered By: Jaime Mao DS: Diagnosis Discharge Diagnosis (1) Cortical age-related cataract, right eye: Status: Resolved (2) Nuclear age-related cataract, right eye: Status: Resolved
--- NOTE | 2024-07-05 15:29 | ROE_ITS ---
Operative Note Operative Note PRE-OP DIAGNOSIS: Nuclear/cortical cataract, right eye POST-OP DIAGNOSIS: same PROCEDURE: Cataract extraction using phacoemulsification with intraocular lens implant, right eye SURGEON: Jaime Mao ANESTHESIA TYPE: Local By Surgeon and MAC Refer to Anesthesia Record ESTIMATED BLOOD LOSS: 0 PATHOLOGY: none sent COMPLICATIONS: None Patient was transported to: same day Patient's condition: stable Implants: Aureliano Clareon [id number] Indications: Progressive decreased vision due to cataract, right eye Procedure Description: CATARACT SURGERY OPERATIVE REPORT PREOPERATIVE DIAGNOSIS: Nuclear/cortical cataract, right eye POSTOPERATIVE DIAGNOSIS: Same OPERATION: Cataract extraction using phacoemulsification with posterior chamber intraocular lens implant, right eye. IOL: IOL Natural [employer] Professor/Model: Aureliano Clareon [id number] IOL Power: + 18.5 diopters IOL Serial Number: [id number] Optic Diameter: 6.0mm Haptic/Overall Diameter: 13.0mm PHACO INFO: Aureliano Centurion Vision System with OZil and Active Fluidics Cumulative Dispersed Energy (CDE): 9.90 seconds SURGEON: Jaime Mao MD, NAYE ANESTHESIA: Monitored Anesthesia Care (MAC), with local sub-tenon's anesthetic infiltration COMPLICATIONS: None SPECIMENS: None INDICATIONS FOR PROCEDURE: The patient is a 78-year-old male with history of diminished visual acuity in both eyes secondary to the development of bilateral nuclear/cortical cataract. He has already undergone cataract surgery in the left eye and is doing well postoperatively. He now presents for cataract surgery in the right eye. See office notes for detailed information. PROCEDURE: The correct surgical eye was identified and marked as the right eye and the pupil was dilated in the preoperative area using mydriatics and cycloplegics. The dilated pupil size was 7.0 mm. The patient elected to proceed without oral sedation. The patient was brought to the operating room where cardiopulmonary monitoring was instituted and surgical time-out was performed, confirming the correct operative eye and IOL power. Topical anesthesia was administered and ophthalmic povidone-iodine 5% was instilled into the conjunctival fornices. The jaron-ocular area was prepped with Betadine 10% solution and draped in the usual sterile fashion for intraocular surgery, including an aperture drape. A Tegaderm transparent film dressing was cut in half and used to cover the lashes and lid margins. Care was taken to sequester the lashes and lid margins under the Tegaderm dressing. A lid speculum was placed between the lids of the operative eye and the Aureliano LuxOR Revalia operating microscope was maneuvered into position. Becca scissors were then used to make a conjunctival buttonhole approximately 6mm posterior to the limbus in the inferonasal quadrant. Blunt dissection was carried out to expose bare sclera, and a blunt-tipped sub-tenon?s anesthesia cannula was introduced and passed posteriorly along the globe where non- preserved plain lidocaine was injected into posterior sub-Tenon?s space. A sideport knife was used to make a paracentesis port. Intraocular phenylephrine/lidocaine was injected into the anterior chamber. The anterior chamber was then filled with viscoelastic. A keratome knife was used to construct a two--plane clear corneal tunnel extending 2.0mm into clear cornea. A flap was raised on the anterior capsule and capsulorhexis forceps were used to complete a continuous curvilinear capsulorhexis of 5.0 mm. Balanced salt solution was then used to perform cortical cleaving hydrodissection and nuclear hydrodelineation until the lens could be freely rotated within the capsular bag. The lens nucleus was then disassembled and removed within the capsular bag and iris plane using phacoemulsification. Residual cortical material was removed using the I/A handpiece. The posterior capsule was carefully polished to remove as much residual lens epithelial cells as safely possible. The capsular bag was then inflated and the anterior chamber deepened with cohesive viscoelastic. The lens implant described above was inserted into the capsular bag using the Aureliano Autonome Injector. A Kuglen hook was used to dial the IOL into position. Residual viscoelastic was then removed first from posterior to the IOL, then from the anterior chamber using the I/A handpiece. The lens implant was noted to center nicely within the capsular bag. The incisions were stromally hydrated, and the anterior chamber was reformed using BSS. Then 0.5cc of moxifloxacin 1.0mg/ml were injected into the capsular bag and anterior chamber. The incisions were checked with a Weck spear and found to be secure. Several drops of ophthalmic povidone-iodine 5% were then applied to the eye followed by two drops of combination steroid/NSAID/antibiotic solution. The drapes were removed and a clear plastic protective eye shield was placed over the eye. The patient was then returned to Same Day Surgery in stable condition. Date of Procedure: 07/05/24
--- NOTE | 2024-07-05 15:48 | W.ANESPOSTOP ---
Postoperative Evaluation Date, Time and Location Date Performed: 07/05/24 Time Performed: 15:49 Patient Location: Day Surgery Unit Vital Signs Most Recent Imported Vital Signs: Most Recent Vital Signs Temp Pulse Resp BP Pulse Ox 36.3 C L 77 20 141/82 H 96 07/05/24 13:39 07/05/24 13:39 07/05/24 13:39 07/05/24 13:39 07/05/24 13:39 Assessment Mental Status: Awake (Alert & Oriented to Patient Baseline) Airway and Respiratory Function: Patent airway with normal (patient baseline) respiratory exam Cardiovascular Function: Hemodynamically Stable Hydration Status: Adequately Hydrated Nausea & Vomiting: No Nausea or Vomiting Pain: Pt. Denies Any Pain Peripheral Nerve Block: Patient did not receive a nerve block
== END 2024-07-05 15:50 | disposition home or self-care (01) ==
LOC: SUR 13:34
PROVIDERS: Visit Provider Ophthalmology
PROC: (CPT 66984; principal; 2024-07-05 15:30)
DX: H25.011 Cortical age-related cataract, right eye (principal); H25.11 Age-related nuclear cataract, right eye; Z98.42 Cataract extraction status, left eye; K21.9 Gastro-esophageal reflux disease without esophagitis; I10 Essential (primary) hypertension
CPT/HCPCS: 66984; 00123; V2632; J2003